=== PATIENT | male | born 1965 | race American Indian/Alaskan Native ===

== ENCOUNTER 2018-10-27 09:32 | Inpatient (IN) | payer BC, OTHER ==
[2018-10-27] MEDS ORDERED: VITAMIN B-1 100 MG, FOLVITE 1 MG, INFUVITE 10 ML in NACL 0.9% 1000 ML 1,000 ML IV ONE ×2 (10:33→21:00)
[2018-10-27 10:48] LABS: Basophils % (Auto) 0.9 % (0.0-1.8); Eosinophils % (Auto) 0.1 % (0.0-4.3); Hematocrit 35.2 % (35.5-45.6); Hemoglobin 12.3 gm/dl (11.8-15.2); Lymphocytes # (Auto) 0.4 K/mm3 (1.2-5.4); Lymphocytes % (Auto) 7.4 % (13.4-35.0); Mean Corpuscular HGB Conc 35 % (32-34); Mean Corpuscular Volume 96 fl (84-94); Monocytes # (Auto) 0.4 K/mm3 (0.0-0.8); Monocytes % (Auto) 8.6 % (0.0-7.3); Platelet Count 161 K/mm3 (140-440); Red Blood Count 3.67 M/mm3 (3.65-5.03)
[2018-10-27] MEDS: ATIVAN IV PRN ×6 (10:50→22:23)
--- NOTE | 2018-10-27 10:57 | Emergency Department Report ---
HPI - General Chief Complaint: Alcohol Time Seen by Provider: 10/27/18 10:00 - HPI HPI: 53-year-old male presents to the emergency department from [facility] with complaint of alcohol withdrawal symptoms uncontrolled by the detox / rehabilitation Center. The patient last had a drink on Tuesday, 5 days ago. Over the past few days he has been having some dizziness, recurrent falls, generalized weakness, tremors, nausea. The patient says that he has been getting B1 and B12 vitamins. He did not go to the emergency department for any medical clearance prior to the detox center. He denies any other past medical conditions. Apparently the patient was sent in because earlier today he had an episode where he had difficulty speaking and the facility thought he had difficulty moving his legs. The patient is awake and alert and says that he just had some weakness. ED Past Medical Hx - Past Medical History Previous Medical History?: No - Surgical History Past Surgical History?: No - Social History Smoking Status: Never Smoker Substance Use Type: Alcohol - Medications Home Medications: Home Medications Medication Instructions Recorded Confirmed Last Taken Type No Known Home Medications [No 10/27/18 10/27/18 Unknown History Reported Home Medications] ED Review of Systems ROS: Stated complaint: WITHDRAWALS Other details as noted in HPI Comment: All other systems reviewed and negative Constitutional: denies: chills, fever Eyes: denies: eye pain, vision change ENT: denies: ear pain, throat pain Respiratory: denies: cough, shortness of breath Cardiovascular: denies: chest pain, palpitations Gastrointestinal: nausea. denies: abdominal pain Genitourinary: denies: urgency, dysuria Musculoskeletal: denies: back pain, arthralgia Skin: denies: rash, lesions Neurological: weakness, other (tremors, dizziness) Physical Exam - Physical Exam Vital Signs: Vital Signs 10/27/18 10:15 Temperature 98.5 F Pulse Rate 105 H Respiratory 18 Rate Blood Pressure 110/62 O2 Sat by Pulse 100 Oximetry Physical Exam: GENERAL: Patient is ill-appearing. HENT: Normocephalic. Atraumatic. Patient has moist mucous membranes. EYES: Extraocular motions are intact. Pupils equal reactive to light bilaterally. NECK: Supple. Trachea is midline. CHEST/LUNGS: Clear to auscultation. There is no respiratory distress noted. HEART/CARDIOVASCULAR: Regular. There is mild tachycardia. There is no murmur. ABDOMEN: Abdomen is soft. There is mild upper abdominal tenderness to palpation. Patient has normal bowel sounds. There is no abdominal distention. SKIN: Skin is warm and dry. NEURO: The patient is awake and oriented but does display some intermittent confusion. He is slow to respond to questions but is mostly able to answer them appropriately. The patient has normal speech. MUSCULOSKELETAL: There is no tenderness or deformity. There is no evidence of acute injury. ED Course Vital Signs 10/27/18 10:15 Temperature 98.5 F Pulse Rate 105 H Respiratory 18 Rate Blood Pressure 110/62 O2 Sat by Pulse 100 Oximetry ED Medical Decision Making - Lab Data Result diagrams: 10/27/18 10:33 10/27/18 10:33 - EKG Data -: EKG Interpreted by De EKG shows normal: sinus rhythm, axis, intervals, QRS complexes (q waves to septal leads), ST-T waves Rate: tachycardia (104 bpm) - EKG Data When compared to previous EKG there are: previous EKG unavailable Interpretation: other (sinus tach at 104 bpm, q waves to the septal leads) - Radiology Data Radiology results: report reviewed CT HEAD WITHOUT CONTRAST: HISTORY: Syncope. TECHNIQUE: Sequential 2.5mm CT images. COMPARISON: 07/05/18. FINDINGS: Cerebral Parenchyma: Within normal limits. Cerebellum: Within normal limits. Brainstem: Within normal limits. Ventricles: Normal. Sella: Normal. Extra-axial spaces: Normal. Basal Cisterns: Normal. Intracranial Hemorrhage: None. Midline Shift: None. Calvarium: Normal. Sinuses: Normal. Mastoid Air Cells: Normal. Visualized Orbits: Normal. IMPRESSION: Cranial CT scan within normal limits. Transcribed By: TTR Dictated By: SHARDA SANCHEZ JR, MD Electronically Authenticated By: SHARDA SANCHEZ JR, MD Signed Date/Time: 10/27/18 1459 PROCEDURE: CT ABDOMEN PELVIS W CON TECHNIQUE: Computerized axial tomography of the abdomen and pelvis was performed after the IV injection of iodinated nonionic contrast. CT DOSE LENGTH PRODUCT: 3758.3 mGycm HISTORY: Pancreatitis COMPARISONS: None . FINDINGS: Visualized lower thorax: No significant abnormality. Liver: Normal size and attenuation. Spleen: Normal size and attenuation. Gallbladder and biliary system: Normal. Pancreas: There is peripancreatic inflammatory stranding pancreas enhances normally. Adrenals: Normal. Kidneys: Normal. GI tract: Normal . Lymph nodes and mesentery: Normal. Vasculature: Normal.. Bladder: Normal. Reproductive organs: Normal. Peritoneum: No free fluid. Musculoskeletal structures: No significant abnormality. Other: None . IMPRESSION: Findings most consistent with acute pancreatitis This document is electronically signed by Ean Welch MD., Oct 27 2018 06:03:49 PM ET Transcribed By: [facility] Dictated By: MILY WELCH MD Electronically Authenticated By: MILY WELCH MD Signed Date/Time: 10/27/18 7279 - Medical Decision Making This patient presents to the emergency department with what appears to be alcoho l withdrawal syndrome. Patient had some complaints of some generalized weakness and some episodes of falling and feeling off balance. A CT scan of the head was done that does not show any bleed, shift, mass, ischemia, or any other acute process. The patient's labs show significant hypokalemia and a very elevated lipase level. A CT scan of the abdomen and pelvis with IV contrast was completed that shows acute pancreatitis. The patient was given some IV magnesium sulfate to replenish the magnesium level. He was given some IV fluid resuscitation with banana bags. He was placed on the alcohol withdrawal protocol to receive Ativan as necessary. The patient will be admitted to the hospital for further evaluation and treatment, and was accepted for admission by the hospitalist, Dr. Corona. - Differential Diagnosis alcohol withdrawal, electrolyte abnormalities, dysrhythmia, pancreatitis Critical Care Time: No Critical care attestation.: If time is entered above; I have spent that time in minutes in the direct care of this critically ill patient, excluding procedure time. ED Disposition Clinical Impression: Hypomagnesemia Acute pancreatitis Qualifiers: Pancreatitis type: alcohol induced Acute pancreatitis complication: unspecified Qualified Code(s): K85.20 - Alcohol induced acute pancreatitis without necrosis or infection Alcohol withdrawal syndrome Qualifiers: Complication of substance-induced condition: with unspecified complication Qualified Code(s): F10.239 - Alcohol dependence with withdrawal, unspecified Disposition: -09 OP ADMIT IP TO THIS HOSP Is pt being admited?: Yes Condition: Serious Time of Disposition: 19:17
[2018-10-27 11:11] LABS: Alanine Aminotransferase 15 units/L (7-56); BUN/Creatinine Ratio 8; Blood Urea Nitrogen 7 mg/dL (9-20); Calcium 7.3 mg/dL (8.4-10.2); Hemolysis Index 36
[2018-10-27] MEDS ORDERED: K-DUR PO ONE (11:27)
[2018-10-27] MEDS ORDERED: MAGNESIUM SULFATE 2GM/50ML 2 GM/50 ML BAG IV ONE (11:27)
--- NOTE | 2018-10-27 11:53 | Cat Scan Report ---
CT HEAD WITHOUT CONTRAST: HISTORY: Alcohol intoxication. TECHNIQUE: Sequential 2.5mm CT images. COMPARISON: none. FINDINGS: Cerebral Parenchyma: Within normal limits. Cerebellum: Within normal limits. Brainstem: Within normal limits. Ventricles: Normal. Sella: Normal. Extra-axial spaces: Normal. Basal Cisterns: Normal. Intracranial Hemorrhage: None. Midline Shift: None. Calvarium: Normal. Sinuses: Normal. Mastoid Air Cells: Normal. Visualized Orbits: Normal. IMPRESSION: Cranial CT scan within normal limits.
--- NOTE | 2018-10-27 13:56 | History and Physical Report ---
History of Present Illness Chief complaint: confused History of present illness: 53 YO Male with ETOH Dependence presents to ED for evaluation. Pt is confused with confabulation and unable to provide history. Pt history taken from ED staff and [facility] staff. As per staff, the patient's last drink of ETOH was 5 days ago. Pt has experienced increased confusion, tremors, and unsteady gait resulting in multiple falls without injury over the past 2 days with worsening symptoms over the past 1 day. EMS was notified, and upon arrival the patient was found to be in distress. Pt transported to [facility]. Pt seen and evaluated in ED and found to have ETOH Withdrawl complicated by Delirium, and Encephalopathy, Acidosis, and ETOH pancreatitis. No further history obtainable. Pt admitted to Medical Floor, and initiated on CIWA protocol, as well as IVF resuscitation therapy. No prior admission for review. No medication listed for reconciliation at time of admission. Past History Past Medical History: other (ETOH Dependence) Past Surgical History: No surgical history, Other (reviewed) Social history: single, alcohol abuse. denies: smoking, prescription drug abuse, IV drug use Family history: hypertension Medications and Allergies Allergies Allergy/AdvReac Type Severity Reaction Status Date / Time No Known Allergies Allergy Unverified 10/27/18 10:34 Home Medications Medication Instructions Recorded Confirmed Last Taken Type No Known Home Medications [No 10/27/18 10/27/18 Unknown History Reported Home Medications] Active Meds: Active Medications Thiamine HCl 100 mg/ Folic Acid 1 mg/ Multivitamins/Minerals 10 ml/ Sodium Chloride 1,011.2 mls @ 250 mls/hr IV ONCE ONE Stop: 10/27/18 14:35 Last Admin: 10/27/18 11:21 Dose: 250 mls/hr Documented by: Sodium Chloride (Nacl 0.45%) 3,000 mls @ 999 mls/hr IV DIRECT SHANNAN Lorazepam (Ativan) 2 mg IV Q1HR PRN PRN Reason: CIWA-Ar 8-15 Last Admin: 10/27/18 11:45 Dose: 2 mg Documented by: Lorazepam (Ativan) 4 mg IV Q1HR PRN PRN Reason: CIWA-Ar 16-25 Lorazepam (Ativan) 4 mg IV Q15MIN PRN PRN Reason: CIWA-Ar >25 Review of Systems ROS unobtainable: due to mental status Exam - Constitutional Vitals: Temp Pulse Resp BP Pulse Ox 98.5 F 69 18 113/65 100 10/27/18 10:15 10/27/18 12:59 10/27/18 12:59 10/27/18 12:59 10/27/18 12:59 General appearance: Present: mild distress, disheveled - EENT Eyes: Present: PERRL ENT: hearing intact, clear oral mucosa - Neck Neck: Present: supple, normal ROM - Respiratory Respiratory effort: normal Respiratory: bilateral: CTA - Cardiovascular Heart Sounds: Present: S1 & S2. Absent: rub, click - Extremities Extremities: pulses symmetrical, No edema Peripheral Pulses: within normal limits - Abdominal General gastrointestinal: Present: soft, non-tender, non-distended, normal bowel sounds Male genitourinary: Present: normal - Integumentary Integumentary: Present: clear, dry, clammy, decreased turgor - Musculoskeletal Musculoskeletal: generalized weakness - Psychiatric Psychiatric: no appropriate mood/affect, no intact judgment & insight, no memory intact - Neurologic Neurologic: CNII-XII intact, no focal deficits, moves all extremities, no gait normal Results - Labs CBC & Chem 7: 10/27/18 10:33 10/27/18 10:33 Labs: Abnormal lab results 10/27/18 10/27/18 Range/Units 10:33 10:33 Hct 35.2 L (35.5-45.6) % MCV 96 H (84-94) fl MCH 34 H (28-32) pg MCHC 35 H (32-34) % Lymph % (Auto) 7.4 L (13.4-35.0) % [place] % (Auto) 8.6 H (0.0-7.3) % Lymph # 0.4 L (1.2-5.4) K/mm3 Seg Neutrophils % 83.0 H (40.0-70.0) % Potassium 3.5 L (3.6-5.0) mmol/L Carbon Dioxide 17 L (22-30) mmol/L BUN 7 L (9-20) mg/dL Glucose 175 H (75-100) mg/dL Calcium 7.3 L (8.4-10.2) mg/dL Magnesium 0.70 L* (1.7-2.3) mg/dL AST 56 H (5-40) units/L Total Protein 5.0 L (6.3-8.2) g/dL Albumin 3.0 L (3.9-5) g/dL Lipase 2791 H (13-60) units/L Assessment and Plan - Patient Problems (1) Acute pancreatitis Current Visit: Yes Status: Acute Qualifiers: Pancreatitis type: alcohol induced Acute pancreatitis complication: unspecified Qualified Code(s): K85.20 - Alcohol induced acute pancreatitis without necrosis or infection Plan to address problem: CT Abdomen/pelvis, serial abdominal exam, IVF resuscitation therapy, bowel rest, lipase level, repeat lipase in AM. No evidence of necrosis on CT abdomen and as a result, no antibiotics prescribed at this time. (2) Alcohol withdrawal syndrome Current Visit: Yes Status: Acute Qualifiers: Complication of substance-induced condition: with unspecified complication Qualified Code(s): F10.239 - Alcohol dependence with withdrawal, unspecified Plan to address problem: CIWA protocol, Thiamine, folic Acid, Multivitamin daily, ativan prn, IVF resuscitation therapy (3) Hypomagnesemia Current Visit: Yes Status: Acute Plan to address problem: repleted in ED. (4) Encephalopathy Current Visit: Yes Status: Acute Plan to address problem: CT Head, neuro checks, IVF resuscitation therapy, seizure precautions, fall precautions, neuro checks. (5) DVT prophylaxis Current Visit: Yes Status: Acute Plan to address problem: SCD to BLE while in bed, prophylactic lovenox
[2018-10-27] MEDS ORDERED: NACL 0.45% 3,000 ML IV SCH (14:00)
[2018-10-27 14:12] LABS: Bacteria,Urine 2+ /HPF (Negative); Bilirubin,Urine NEG (Negative); Blood,Urine SM (Negative); Color,Urine Amber (Yellow); Hyaline Casts,Urine 9 /LPF; Mucus,Urine 2+ /HPF
[2018-10-27 14:18] LABS: Amphetamine Screen,Urine PRESUMPTIVE NEGATIVE; Benzodiazepines Screen,Urine PRESUMPTIVE NEGATIVE; Cannabinoid Screen,Urine PRESUMPTIVE NEGATIVE; Cocaine Screen,Urine PRESUMPTIVE NEGATIVE; Methadone Screen,Urine PRESUMPTIVE NEGATIVE; Opiate Screen,Urine PRESUMPTIVE NEGATIVE
[2018-10-27] MEDS ORDERED: ZOFRAN IV PRN (16:05)
[2018-10-27] MEDS ORDERED: SODIUM CHLORIDE FLUSH SYRINGE 10 ML IV PRN (16:05)
[2018-10-27] MEDS ORDERED: PROVENTIL IH PRN (16:05)
--- NOTE | 2018-10-27 17:05 | Cat Scan Report ---
PROCEDURE: CT ABDOMEN PELVIS W CON TECHNIQUE: Computerized axial tomography of the abdomen and pelvis was performed after the IV inject ion of iodinated nonionic contrast. CT DOSE LENGTH PRODUCT: 3758.3 mGycm HISTORY: Pancreatitis COMPARISONS: None . FINDINGS: Visualized lower thorax: No significant abnormality. Liver: Normal size and attenuation. Spleen: Normal size and attenuation. Gallbladder and biliary system: Normal. Pancreas: There is peripancreatic inflammatory stranding pancreas enhances normally. Adrenals: Normal. Kidneys: Normal. GI tract: Normal . Lymph nodes and mesentery: Normal. Vasculature: Normal.. Bladder: Normal. Reproductive organs: Normal. Peritoneum: No free fluid. Musculoskeletal structures: No significant abnormality. Other: None . IMPRESSION: Findings most consistent with acute pancreatitis This document is electronically signed by Ean Estrada MD., Oct 27 2018 06:03:49 PM ET
[2018-10-27] MEDS ORDERED: ATIVAN ONE (18:32)
[2018-10-27] MEDS ORDERED: NACL 0.45% 1000 ML 1,000 ML IV ONE (18:33)
[2018-10-27] MEDS: NACL 0.45% 1000 ML 1,000 ML IV SCH (18:37)
[2018-10-27] MEDS ORDERED: ZOSYN/NS 4.5GM/100ML 4.5 GM/100 ML VIAL IV ONE (19:30)
[2018-10-27] MEDS: LOVENOX SUB-Q SCH (22:18)
[2018-10-27] MEDS: SODIUM CHLORIDE FLUSH SYRINGE 10 ML IV SCH (22:29)
[2018-10-28] MEDS: ATIVAN IV PRN ×6 (00:27→17:32)
[2018-10-28 07:27] LABS: Basophils % (Auto) 0.8 % (0.0-1.8); Eosinophils % (Auto) 0.1 % (0.0-4.3); Hematocrit 30.9 % (35.5-45.6); Lymphocytes # (Auto) 0.8 K/mm3 (1.2-5.4); Lymphocytes % (Auto) 14.7 % (13.4-35.0); Mean Corpuscular HGB Conc 36 % (32-34); Mean Corpuscular Volume 96 fl (84-94); Monocytes # (Auto) 0.8 K/mm3 (0.0-0.8); Monocytes % (Auto) 14.5 % (0.0-7.3); Platelet Count 133 K/mm3 (140-440); Red Blood Count 3.23 M/mm3 (3.65-5.03); Red Cell Distribution Width 14.1 % (13.2-15.2)
[2018-10-28 08:13] LABS: Alanine Aminotransferase 15 units/L (7-56); Albumin 3.4 g/dL (3.9-5); BUN/Creatinine Ratio 10; Blood Urea Nitrogen 9 mg/dL (9-20); Calcium 8.1 mg/dL (8.4-10.2); Hemolysis Index 4
[2018-10-28] MEDS: NACL 0.45% 1000 ML 1,000 ML IV SCH ×2 (09:14→19:04)
[2018-10-28] MEDS: VITAMIN B-1 PO SCH (09:15)
[2018-10-28] MEDS: THERAGRAN Tab PO SCH (09:15)
[2018-10-28] MEDS: FOLVITE PO SCH (09:15)
--- NOTE | 2018-10-28 11:34 | Progress Note ---
Assessment and Plan - Acute pancreatitis CT Abdomen/pelvis, serial abdominal exam, IVF resuscitation therapy, bowel rest, lipase level, repeat lipase in AM. No evidence of necrosis on CT abdomen and as a result, no antibiotics prescribed at this time. - DT Transfer to the unit Continue on stroke protocol May commence patient on Ativan drip - Alcohol withdrawal syndrome CIWA protocol, Thiamine, folic Acid, Multivitamin daily, ativan prn, increase IVF resuscitation therapy - Hypomagnesemia Supplement further - Encephalopathy CT Head, neuro checks, IVF resuscitation therapy, seizure precautions, fall precautions, neuro checks. - DVT prophylaxis Current Visit: Yes Status: Acute Plan to address problem: SCD to BLE while in bed, prophylactic lovenox Subjective Date of service: 10/28/18 Principal diagnosis: DT, alcohol withdrawal Interval history: Patient's seen and examined. Denies any fever or chest pain. Discussed with the patient is nauseous. Abdomen was needed tachycardia. Objective - Exam Narrative Exam: Constitutional: Drowsy Head: Normocephalic atraumatic Eyes: Pupils are equal round and reactive to light Nose: No enlarged turbinates, no septal deviation. Mouth: Moist mucous membranes. Neck: Supple no thyromegaly. No bruit. No JVD Heart: Tachycardic S1-S2 normal. No rubs murmurs or gallop Lungs: Clear to auscultation bilaterally. no rales or rhonchi Abdomen: Soft, nontender. Bowel sound are present. Extremities: No edema, no cyanosis, no clubbing. Neuro: Drowsy Skin: No rashes or hyperpigmented spots Musculoskeletal system: No joint pain or swelling Hematological: No petechia or subcutanous hemorrhages. Immunological: No multiple septic spots on the skin Lymphatic: No generalized lymphadenopathy Psychiatry: Drowsy - Constitutional Vitals: Vital Signs - 12hr 10/27/18 10/27/18 10/28/18 23:56 23:58 06:12 Temperature 97.8 F Pulse Rate 107 H 101 H Respiratory 18 18 Rate Blood Pressure 145/96 126/82 O2 Sat by Pulse 99 100 Oximetry 10/28/18 06:14 Temperature 97.5 F L Pulse Rate Respiratory Rate Blood Pressure O2 Sat by Pulse Oximetry - Labs CBC & Chem 7: 10/28/18 06:39 10/28/18 06:39 Labs: Abnormal lab results 10/27/18 10/27/1819 Range/Units 10:33 13:55 06:39 RBC 3.23 L (3.65-5.03) M/mm3 Hgb 11.0 L (11.8-15.2) gm/dl Hct 30.9 L (35.5-45.6) % MCV 96 H (84-94) fl MCH 34 H (28-32) pg MCHC 36 H (32-34) % Plt Count 133 L (140-440) K/mm3 [place] % (Auto) 14.5 H (0.0-7.3) % Lymph # 0.8 L (1.2-5.4) K/mm3 Potassium (3.6-5.0) mmol/L Calcium (8.4-10.2) mg/dL AST (5-40) units/L Total Protein (6.3-8.2) g/dL Albumin (3.9-5) g/dL Lipase 2791 H (13-60) units/L Urine WBC (Auto) 8.0 H (0.0-6.0) /HPF 10/28/18 10/28/18 Range/Units 06:39 06:39 RBC (3.65-5.03) M/mm3 Hgb (11.8-15.2) gm/dl Hct (35.5-45.6) % MCV (84-94) fl MCH (28-32) pg MCHC (32-34) % Plt Count (140-440) K/mm3 [place] % (Auto) (0.0-7.3) % Lymph # (1.2-5.4) K/mm3 Potassium 3.4 L (3.6-5.0) mmol/L Calcium 8.1 L (8.4-10.2) mg/dL AST 63 H (5-40) units/L Total Protein 6.2 L D (6.3-8.2) g/dL Albumin 3.4 L (3.9-5) g/dL Lipase 2425 H (13-60) units/L Urine WBC (Auto) (0.0-6.0) /HPF
[2018-10-28 13:02] LABS: Bilirubin,Urine NEG (Negative); Blood,Urine SM (Negative); Color,Urine Yellow (Yellow); Urobilinogen,Urine < 2.0 mg/dL (<2.0)
[2018-10-28 13:11] LABS: Amphetamine Screen,Urine PRESUMPTIVE NEGATIVE; Benzodiazepines Screen,Urine PRESUMPTIVE NEGATIVE; Cannabinoid Screen,Urine PRESUMPTIVE NEGATIVE; Cocaine Screen,Urine PRESUMPTIVE NEGATIVE; Methadone Screen,Urine PRESUMPTIVE NEGATIVE; Opiate Screen,Urine PRESUMPTIVE NEGATIVE
[2018-10-28] MEDS: SODIUM CHLORIDE FLUSH SYRINGE 10 ML IV SCH ×2 (14:34→21:05)
[2018-10-28] MEDS ORDERED: HALDOL IV PRN (15:53)
[2018-10-28] MEDS ORDERED: MAGNESIUM SULFATE 4GM/100ML 4 GM/100 ML BAG IV ONE (16:00)
--- NOTE | 2018-10-28 16:42 | XRay Report ---
PROCEDURE: XR ABDOMEN 1V AP TECHNIQUE: Abdominal radiograph, single view. HISTORY: Confirm Feeding tube COMPARISONS: AP CT 10/27/2018 . FINDINGS: Distal tip and side-port gastric tube is present in the left upper quadrant of the abdomen, in the ex pected region of the proximal stomach. The nonspecific intestinal gas is without evidence of distention or obstructive pattern. The colonic fecal content does not appear increased. There is no visceromegaly or mass. Pelvis is not included limiting the examination. No radiographic evidence of definite urinary tract calcification. IMPRESSION: Nonspecific bowel gas pattern without intestinal distention Gastric tube distal tip and side-port in proximal stomach region This document is electronically signed by Lucas Cochran MD., October 28 2018 05:40:06 PM ET
[2018-10-28] MEDS: LIBRIUM PO SCH (16:59)
[2018-10-28] MEDS: KCL 10MEQ/100ML 10 MEQ/100 ML BAG IV SCH ×4 (17:50→23:17)
[2018-10-28] MEDS: LOVENOX SUB-Q SCH (21:05)
[2018-10-29] MEDS: LIBRIUM PO SCH ×4 (00:39→23:50)
[2018-10-29] MEDS: NACL 0.45% 1000 ML 1,000 ML IV SCH ×3 (01:13→17:09)
[2018-10-29 05:32] LABS: Hematocrit 30.7 % (35.5-45.6); Hemoglobin 10.7 gm/dl (11.8-15.2); Mean Corpuscular HGB Conc 35 % (32-34); Mean Corpuscular Volume 98 fl (84-94); Platelet Count 137 K/mm3 (140-440); Red Blood Count 3.14 M/mm3 (3.65-5.03)
[2018-10-29 06:04] LABS: Alanine Aminotransferase 13 units/L (7-56); Albumin 2.7 g/dL (3.9-5); BUN/Creatinine Ratio 16; Blood Urea Nitrogen 8 mg/dL (9-20); Calcium 7.8 mg/dL (8.4-10.2); Hemolysis Index 26
[2018-10-29] MEDS: ATIVAN IV PRN ×5 (06:36→21:38)
[2018-10-29 07:54] LABS: Band Neutrophils # (Manual) 0.6 K/mm3; Basophils % (Manual) 0 % (0.0-1.8); Total Cells Counted 100
[2018-10-29 07:55] LABS: Anisocytosis 1+; Platelet Estimate Consistent w Auto
[2018-10-29] MEDS: POTASSIUM CHLORIDE FEEDTUBE SCH (10:33)
[2018-10-29] MEDS: THERAGRAN Tab PO SCH (10:33)
[2018-10-29] MEDS: VITAMIN B-1 PO SCH (10:33)
[2018-10-29] MEDS: FOLVITE PO SCH (10:33)
--- NOTE | 2018-10-29 11:23 | Progress Note ---
Assessment and Plan - Alcohol withdrawal syndrome with tachycardia dn diapjoresis for whci he was transdferd to the unit 10/28/18 CIWA protocol, Thiamine, folic Acid, Multivitamin daily, ativan prn, increase IVF resuscitation therapy - Encephalopathy CT Head, neuro checks, IVF resuscitation therapy, seizure precautions, fall precautions, neuro checks. - DT With tachycardia Continue on stroke protocol May commence patient on Ativan drip - Acute pancreatitis CT Abdomen/pelvis, serial abdominal exam, IVF resuscitation therapy, bowel rest, repeat lipase in AM. No evidence of necrosis on CT abdomen and as a result, Will commence pt on imperical antibiotic - Hypomagnesemia - am Mg level pending Supplement further if still low - DVT prophylaxis Current Visit: Yes Status: Acute Plan to address problem: SCD to BLE while in bed, prophylactic lovenox Subjective Date of service: 10/29/18 Principal diagnosis: DT, alcohol withdrawal Interval history: Patient's seen and examined. Denies any fever or chest pain. Discussed with the patient and his nurse. No overnoght event reported to me. Objective - Exam Narrative Exam: Constitutional: More alert but still confused Head: Normocephalic atraumatic Eyes: Pupils are equal round and reactive to light Nose: No enlarged turbinates, no septal deviation. Mouth: Moist mucous membranes. Neck: Supple no thyromegaly. No bruit. No JVD Heart: Tachycardic S1-S2 normal. No rubs murmurs or gallop Lungs: Clear to auscultation bilaterally. no rales or rhonchi Abdomen: Soft, nontender. Bowel sound are present. Extremities: No edema, no cyanosis, no clubbing. Neuro: Confused Skin: No rashes or hyperpigmented spots Musculoskeletal system: No joint pain or swelling Hematological: No petechia or subcutanous hemorrhages. Immunological: No multiple septic spots on the skin Lymphatic: No generalized lymphadenopathy Psychiatry: Confused - Constitutional Vitals: Vital Signs - 12hr 10/28/18 10/28/18 10/28/18 23:25 23:30 23:38 Temperature Pulse Rate 107 H 104 H Respiratory 11 L 11 L Rate Blood Pressure 120/78 109/76 O2 Sat by Pulse 100 100 100 Oximetry 10/28/18 10/29/18 10/29/18 23:51 00:00 00:30 Temperature 99.6 F Pulse Rate 101 H 111 H Respiratory 12 14 Rate Blood Pressure 112/79 112/87 O2 Sat by Pulse 100 100 Oximetry 10/29/18 10/29/18 10/29/18 01:00 01:30 02:00 Temperature Pulse Rate 112 H 101 H 102 H Respiratory 16 15 12 Rate Blood Pressure 112/87 105/78 97/73 O2 Sat by Pulse 98 100 100 Oximetry 10/29/18 10/29/18 10/29/18 02:30 02:53 03:00 Temperature Pulse Rate 104 H 99 H 97 H Respiratory 10 L 11 L 11 L Rate Blood Pressure 94/59 94/59 O2 Sat by Pulse 100 100 100 Oximetry 10/29/18 10/29/18 10/29/18 03:30 03:41 04:00 Temperature 99.1 F Pulse Rate 98 H 98 H Respiratory 11 L 12 Rate Blood Pressure 110/84 107/74 O2 Sat by Pulse 100 100 Oximetry 10/29/18 10/29/18 10/29/18 04:30 05:00 05:30 Temperature Pulse Rate 97 H 99 H 96 H Respiratory 12 14 16 Rate Blood Pressure 100/65 98/74 84/57 O2 Sat by Pulse 100 100 100 Oximetry 10/29/18 10/29/18 10/29/18 06:01 06:30 07:01 Temperature Pulse Rate 113 H 120 H 99 H Respiratory 19 19 17 Rate Blood Pressure 113/79 113/79 133/82 O2 Sat by Pulse 98 99 100 Oximetry 10/29/18 10/29/18 10/29/18 07:30 08:00 08:30 Temperature 98.8 F Pulse Rate 98 H 97 H 105 H Respiratory 16 17 17 Rate Blood Pressure 140/85 137/75 120/86 O2 Sat by Pulse 100 100 100 Oximetry 10/29/18 10/29/18 10/29/18 09:00 09:30 10:00 Temperature Pulse Rate 111 H 107 H 111 H Respiratory 17 20 17 Rate Blood Pressure 105/84 123/84 117/84 O2 Sat by Pulse 100 100 100 Oximetry 10/29/18 10/29/18 10:30 11:00 Temperature Pulse Rate 107 H 96 H Respiratory 14 13 Rate Blood Pressure 117/77 112/81 O2 Sat by Pulse 100 100 Oximetry - Labs CBC & Chem 7: 10/29/18 04:49 10/29/18 04:49 Labs: Abnormal lab results 10/28/18 10/29/18 10/29/18 Range/Units 20:45 04:49 04:49 RBC 3.14 L (3.65-5.03) M/mm3 Hgb 10.7 L (11.8-15.2) gm/dl Hct 30.7 L (35.5-45.6) % MCV 98 H (84-94) fl MCH 34 H (28-32) pg MCHC 35 H (32-34) % Plt Count 137 L (140-440) K/mm3 Monocytes % (Manual) 10.0 H (0.0-7.3) % Lymphocytes # (Manual) 0.8 L (1.2-5.4) K/mm3 POC ABG pH 7.511 H (7.35-7.45) Potassium 3.4 L (3.6-5.0) mmol/L Carbon Dioxide 18 L (22-30) mmol/L BUN 8 L (9-20) mg/dL Creatinine 0.5 L (0.8-1.5) mg/dL Glucose 101 H (75-100) mg/dL Calcium 7.8 L (8.4-10.2) mg/dL Magnesium (1.7-2.3) mg/dL AST 47 H (5-40) units/L Total Protein 5.7 L (6.3-8.2) g/dL Albumin 2.7 L (3.9-5) g/dL 10/29/18 Range/Units 09:48 RBC (3.65-5.03) M/mm3 Hgb (11.8-15.2) gm/dl Hct (35.5-45.6) % MCV (84-94) fl MCH (28-32) pg MCHC (32-34) % Plt Count (140-440) K/mm3 Monocytes % (Manual) (0.0-7.3) % Lymphocytes # (Manual) (1.2-5.4) K/mm3 POC ABG pH (7.35-7.45) Potassium (3.6-5.0) mmol/L Carbon Dioxide (22-30) mmol/L BUN (9-20) mg/dL Creatinine (0.8-1.5) mg/dL Glucose (75-100) mg/dL Calcium (8.4-10.2) mg/dL Magnesium 1.40 L (1.7-2.3) mg/dL AST (5-40) units/L Total Protein (6.3-8.2) g/dL Albumin (3.9-5) g/dL
[2018-10-29] MEDS: SODIUM CHLORIDE FLUSH SYRINGE 10 ML IV SCH ×2 (13:37→21:44)
--- NOTE | 2018-10-29 15:23 | Consultation ---
History of Present Illness Consult date: 10/29/18 Requesting physician: AGAPITO VALDES Reason for consult: other (Delirium Tremens) History of present illness: PULMONARY/CCM CONSULT NOTE (Full dictation # [id number]) Please see dictated notes for full details Past History Past Medical History: other (ETOH Dependence) Past Surgical History: No surgical history, Other (reviewed) Social history: single, alcohol abuse. denies: smoking, prescription drug ab use, IV drug use Family history: hypertension Medications and Allergies Allergies Allergy/AdvReac Type Severity Reaction Status Date / Time No Known Allergies Allergy Unverified 10/27/18 10:34 Home Medications Medication Instructions Recorded Confirmed Last Taken Type No Known Home Medications [No 10/27/18 10/27/18 Unknown History Reported Home Medications] Active Meds: Active Medications Acetaminophen (Tylenol) 650 mg PO Q4H PRN PRN Reason: Pain MILD(1-3)/Fever >100.5/LUNA Albuterol (Proventil) 2.5 mg IH Q4HRT PRN PRN Reason: Shortness Of Breath Chlordiazepoxide HCl (Librium) 50 mg PO Q8H [facility] Stop: 10/30/18 15:59 Last Admin: 10/29/18 10:33 Dose: 50 mg Documented by: Enoxaparin Sodium (Lovenox) 40 mg SUB-Q QDAY@2200 [facility] Last Admin: 10/28/18 21:05 Dose: 40 mg Documented by: Folic Acid (Folvite) 1 mg PO QDAY [facility] Last Admin: 10/29/18 10:33 Dose: 1 mg Documented by: Haloperidol Lactate (Haldol) 5 mg IV Q6H PRN PRN Reason: Agitation Stop: 10/30/18 15:52 Sodium Chloride (Nacl 0.45% 1000 Ml) 1,000 mls @ 150 mls/hr IV DIRECT SHANNAN Last Admin: 10/29/18 08:31 Dose: 150 mls/hr Documented by: Lorazepam (Ativan) 2 mg IV Q1HR PRN PRN Reason: ROLANDO-Gagandeep 8-15 Last Admin: 10/29/18 06:36 Dose: 2 mg Documented by: Lorazepam (Ativan) 4 mg IV Q1HR PRN PRN Reason: ROLANDO-Gagandeep 16-25 Last Admin: 10/29/18 13:38 Dose: 4 mg Documented by: Lorazepam (Ativan) 4 mg IV Q15MIN PRN PRN Reason: CIWA-Ar >25 Last Admin: 10/28/18 17:32 Dose: 4 mg Documented by: Multivitamins (Theragran Tab) 1 each PO QDAY [facility] Last Admin: 10/29/18 10:33 Dose: 1 each Documented by: Ondansetron HCl (Zofran) 4 mg IV Q8H PRN PRN Reason: Nausea And Vomiting Potassium Chloride (Potassium Chloride) 20 meq FEEDTUBE QDAY [facility] Last Admin: 10/29/18 10:33 Dose: 20 meq Documented by: Quetiapine Fumarate (Seroquel) 200 mg PO BID [facility] Last Admin: 10/29/18 10:33 Dose: 200 mg Documented by: Sodium Chloride (Sodium Chloride Flush Syringe 10 Ml) 10 ml IV BID [facility] Last Admin: 10/29/18 13:37 Dose: 10 ml Documented by: Sodium Chloride (Sodium Chloride Flush Syringe 10 Ml) 10 ml IV PRN PRN PRN Reason: LINE FLUSH Thiamine HCl (Vitamin B-1) 100 mg PO QDAY [facility] Last Admin: 10/29/18 10:33 Dose: 100 mg Documented by: Physical Examination Vital signs: Vital Signs Temp Pulse Resp BP Pulse Ox 98.5 F 105 H 18 110/62 100 10/27/18 10:15 10/27/18 10:15 10/27/18 10:15 10/27/18 10:15 10/27/18 10:15 Results - Laboratory Findings CBC and BMP: 10/29/18 04:49 10/29/18 04:49 ABG POC ABG pH 7.511 (7.35-7.45) H 10/28/18 20:45 POC ABG pO2 98 (80-105) 10/28/18 20:45 POC ABG HCO3 20.2 (22-26 mml/L) 10/28/18 20:45 POC ABG Total CO2 21 (23-27mmol/L) 10/28/18 20:45 POC ABG O2 Sat 98 10/28/18 20:45 Abnormal lab findings: Abnormal Labs 10/27/18 10/27/18 10/27/18 10:33 10:33 13:55 RBC Hgb Hct 35.2 L MCV 96 H MCH 34 H MCHC 35 H Plt Count Lymph % (Auto) 7.4 L Holmes % (Auto) 8.6 H Lymph # 0.4 L Seg Neutrophils % 83.0 H Monocytes % (Manual) Lymphocytes # (Manual) POC ABG pH Potassium 3.5 L Carbon Dioxide 17 L BUN 7 L Creatinine Glucose 175 H Calcium 7.3 L Magnesium 0.70 L* AST 56 H Total Protein 5.0 L Albumin 3.0 L Lipase 2791 H Urine WBC (Auto) 8.0 H 10/28/18 10/28/18 10/28/18 06:39 06:39 06:39 RBC 3.23 L Hgb 11.0 L Hct 30.9 L MCV 96 H MCH 34 H MCHC 36 H Plt Count 133 L Lymph % (Auto) Holmes % (Auto) 14.5 H Lymph # 0.8 L Seg Neutrophils % Monocytes % (Manual) Lymphocytes # (Manual) POC ABG pH Potassium 3.4 L Carbon Dioxide BUN Creatinine Glucose Calcium 8.1 L Magnesium AST 63 H Total Protein 6.2 L D Albumin 3.4 L Lipase 2425 H Urine WBC (Auto) 10/28/18 10/29/18 10/29/18 20:45 04:49 04:49 RBC 3.14 L Hgb 10.7 L Hct 30.7 L MCV 98 H MCH 34 H MCHC 35 H Plt Count 137 L Lymph % (Auto) Holmes % (Auto) Lymph # Seg Neutrophils % Monocytes % (Manual) 10.0 H Lymphocytes # (Manual) 0.8 L POC ABG pH 7.511 H Potassium 3.4 L Carbon Dioxide 18 L BUN 8 L Creatinine 0.5 L Glucose 101 H Calcium 7.8 L Magnesium AST 47 H Total Protein 5.7 L Albumin 2.7 L Lipase Urine WBC (Auto) 10/29/18 10/29/18 09:48 09:48 RBC Hgb Hct MCV MCH MCHC Plt Count Lymph % (Auto) Holmes % (Auto) Lymph # Seg Neutrophils % Monocytes % (Manual) Lymphocytes # (Manual) POC ABG pH Potassium Carbon Dioxide BUN Creatinine Glucose Calcium Magnesium 1.40 L AST Total Protein Albumin Lipase 1628 H Urine WBC (Auto)
[2018-10-29] MEDS ORDERED: MAGNESIUM SULFATE 4GM/100ML 4 GM/100 ML BAG IV ONE (16:33)
[2018-10-29] MEDS ORDERED: KPHOS 30 MMOL in NACL 0.9% 500 ML 500 ML IV ONE (16:35)
[2018-10-29] MEDS: LOVENOX SUB-Q SCH (21:32)
[2018-10-29] MEDS: TYLENOL PO PRN (23:50)
[2018-10-30] MEDS: NACL 0.45% 1000 ML 1,000 ML IV SCH ×2 (03:36→10:35)
--- NOTE | 2018-10-30 05:19 | Consultation ---
PULMONARY CRITICAL CARE CONSULT CONSULTING PHYSICIAN: Crissy Moya MD REASON FOR CONSULTATION: Alcohol withdrawal with severe agitation and need for closer observation and deeper sedation. CHIEF COMPLAINT AND HISTORY OF PRESENT ILLNESS: As follows: The patient is a 53-year-old male with past medical history significant amongst other things for a diagnosis of alcohol dependence, came into the ER, confused, confabulating, essentially in delirium tremens as per the staff of [facility]. His last drink of alcohol was 5 days prior to presentation. He had had multiple falls from unsteady gait. In the ER, he was stabilized and admitted to the telemetry floor on CIWA protocol for alcohol withdrawal. While on the medical telemetry floor, his CIWA scores increased significantly and he was brought down to the Intensive Care Unit with the initial idea being he might need deeper sedation and intubation. When I stopped by to see him; however, he was actually very calm in bed. At that time, he had just received a 4 mg IV dose of Ativan. He was incoherent and unable to give me more of a history. I do not have any history of vomiting or overt aspiration. The patient has really not been febrile since he has been here. The above is as much of the history of presentation as I have. PAST MEDICAL HISTORY: Alcohol abuse. PAST SURGICAL HISTORY: Unknown. MEDICATIONS: He was on at the time I stopped by to see him was reviewed. Pertinent medications included the following: He had been on albuterol nebulizer treatments 2.5 mg nebulized q. 4 hours p.r.n. shortness of breath, folic acid 1 mg p.o. daily, Ativan per CIWA protocol, daily multivitamin, Zofran 4 mg IV q. 8 hours p.r.n., thiamine 100 mg p.o. daily. ALLERGIES: No known drug allergies. DIET: Obese gentleman, acute weight loss or gain history is unknown. FAMILY AND SOCIAL HISTORY: According to the records, the patient lives in the community. He has a history of alcohol abuse. The records indicate that he had denied tobacco or IV drug use in the ER. REVIEW OF SYSTEMS: Unobtainable secondary to the patient's medical and mental condition. Since he has been in the hospital, no gross hematochezia or melena, no gross hematuria, no hematemesis, no emesis, no hemoptysis, no witnessed seizures. Review of systems otherwise unobtainable. PHYSICAL EXAMINATION: VITAL SIGNS: At initial presentation, he was afebrile, temperature 98.5 degrees Fahrenheit with a pulse of 105, respiratory rate of 18 and blood pressure of 110/62, O2 sats were 100%, inspired oxygen concentration at that time was not recorded. When I stopped by to see him, his O2 sats were 98%; however, that was on 2 liters nasal cannula. GENERAL: Middle-aged obese male. Normocephalic, atraumatic, resting in bed, sedated and calm at the time of my evaluation without significant respiratory distress or depression. HEAD, EYES, EARS, NOSE AND THROAT: He is anicteric. No conjunctival erythema. Oropharynx is moist, appears to be a Mallampati #3 to Mallampati #4 oropharynx. He has a large neck circumference. No gross jugular venous distention, no thyromegaly. LUNGS: Auscultation of both lung tovar unremarkable. Lungs were clear bilaterally. HEART: Heart sounds 1 and 2 are heard. They were regular in rate and rhythm at the time of my evaluation without any rubs or murmurs. ABDOMEN: Soft, full, bowel sounds are positive, nontender. No palpable hepatosplenomegaly. EXTREMITIES: Without overt digital clubbing, no cyanosis and no pedal edema. Pedal pulses are strong bilaterally. NEUROLOGIC: Pupils are equal, round, about 3 mm, sluggishly reactive to light. Extraocular muscles and movements could not be adequately assessed. He had spontaneous movements to all extremities. He was sedated. His affect was flat. Again from a psychiatric standpoint, his affect was flat; however, he had been delirious most of the day. SKIN: The skin is of normal turgor without overt cellulitis or rash. LABORATORY DATA: From my review were as follows: Admission white cell count 5200, hemoglobin 12.3, hematocrit 35.2, platelet count 161. No manual differential. Serum sodium was 143, potassium 3.5, chloride 106, bicarbonate 17, BUN 7, creatinine 0.9. Glucose was 175. Magnesium was low at 0.7. AST was up at 56. Albumin low at 3.0; otherwise, liver function tests essentially within normal limits. Urinalysis was negative for nitrites and leukocyte esterase. He did have 8 white cells per high power field. Urine drug screen was presumptive negative. Alcohol level was non-detectable. RADIOGRAPHIC STUDIES: CT scan of the abdomen and pelvis as well as CT scan of the head was done at presentation. The CT scan suggested acute pancreatitis of the abdomen and pelvis. The CT of the head was read as being within normal limits. I should mention his lipase level was 2791 at presentation. ASSESSMENT AND PLAN: 1. Acute pancreatitis. 2. Alcohol withdrawal with delirium tremens. 3. Hypomagnesemia. 4. Acute toxic metabolic encephalopathy. 5. Obesity. 6. Hypokalemia. 7. Elevated serum transaminase. PLAN: We will keep him n.p.o. for now except for meds. I will have an NG tube placed and will begin Seroquel to better control his delirium and to spare benzodiazepines, which will depress his respiratory function even more. I will get arterial blood gas just to see where we are in terms of any significant hypercapnia. Oxygen will be weaned to keep sats greater than or equal to about 90%. Aspiration precautions will be maintained. Electrolytes are being aggressively replaced. He is going to be placed on GI and DVT prophylaxis. We will continue folate and thiamine replacement. Flu and pneumonia vaccination will be addressed per protocol. Hopefully, he tolerates the interventions, does not decompensate in particular from a pancreatitis standpoint, and we will continue to trend his serum lipase. GI evaluation will be at the behest of the attending physician. Thank you very much for the consult, Dr. Moya. We will follow along and make further recommendations as picture progresses/becomes clearer. JOB# [id number] CROW/ARGENTINA SIMENTAL
[2018-10-30 06:47] LABS: Hematocrit 29.4 % (35.5-45.6); Hemoglobin 10.4 gm/dl (11.8-15.2); Mean Corpuscular HGB Conc 35 % (32-34); Mean Corpuscular Volume 96 fl (84-94); Platelet Count 160 K/mm3 (140-440); Red Blood Count 3.07 M/mm3 (3.65-5.03); Red Cell Distribution Width 13.7 % (13.2-15.2)
[2018-10-30 06:59] LABS: Alanine Aminotransferase 13 units/L (7-56); Albumin 2.9 g/dL (3.9-5); BUN/Creatinine Ratio 14; Blood Urea Nitrogen 7 mg/dL (9-20); Calcium 7.7 mg/dL (8.4-10.2); Hemolysis Index 5
[2018-10-30 09:12] LABS: Basophils % (Manual) 0 % (0.0-1.8); Total Cells Counted 100
[2018-10-30 09:19] LABS: Anisocytosis 1+; Platelet Estimate Consistent w Auto
[2018-10-30] MEDS: POTASSIUM CHLORIDE FEEDTUBE SCH (09:44)
[2018-10-30] MEDS: FOLVITE PO SCH (09:44)
[2018-10-30] MEDS: THERAGRAN Tab PO SCH (09:44)
[2018-10-30] MEDS: VITAMIN B-1 PO SCH (09:44)
[2018-10-30] MEDS: LIBRIUM PO SCH (09:44)
[2018-10-30] MEDS: SODIUM CHLORIDE FLUSH SYRINGE 10 ML IV SCH ×2 (09:45→21:16)
--- NOTE | 2018-10-30 12:51 | Progress Note ---
Assessment and Plan Acute pancreatitis. Alcohol withdrawal with delirium tremens. Hypomagnesemia. Acute toxic metabolic encephalopathy. Obesity. Hypokalemia. Elevated serum transaminase. - get CXR re: hypoxemia and crackles - continue CIWA protocol - transaminases improved - keeping NPO for now - lipase trending down - prn analgesia - continue electrolyte replacement - continue supplemental oxygen to keep sats > 90% - continue GI & VTE prophylaxis - PT/OT as tolerated - mobility protocol for pressure ulcer prophylacis - flu & pneumovax per protocol ... transfer to PCU ... re-evaluate in am & prn Subjective Date of service: 10/30/18 Principal diagnosis: Acute pancreatitis; DT's; Hypomagnesemia; Acute encephalopathy (toxic/met) Interval history: Patient is seen today for: Acute pancreatitis; Alcohol withdrawal with delirium tremens; Hypomagnesemia; Acute toxic metabolic encephalopathy; Obesity; Elevated serum transaminase. Seen and examined at bedside; 24hour events reviewed; nursing and respiratory care staff consulted; no adverse overnight events reported to me; cindy on CIWA protocol; AMS is persistent; remains on supplemental oxygen therapy; No N/V/F/C Objective Vital Signs - 12hr 10/30/18 10/30/18 10/30/18 01:00 01:30 02:00 Temperature Pulse Rate 101 H 95 H 94 H Pulse Rate [ From Monitor] Respiratory 13 11 L 13 Rate Blood Pressure 98/57 90/55 83/53 O2 Sat by Pulse 99 99 99 Oximetry 10/30/18 10/30/18 10/30/18 02:30 02:40 03:00 Temperature Pulse Rate 90 99 H 96 H Pulse Rate [ From Monitor] Respiratory 13 18 10 L Rate Blood Pressure 88/57 103/76 O2 Sat by Pulse 99 100 100 Oximetry 10/30/18 10/30/18 10/30/18 03:30 04:00 04:30 Temperature 98.0 F Pulse Rate 85 85 83 Pulse Rate [ 82 From Monitor] Respiratory 11 L 11 L 11 L Rate Blood Pressure 92/64 91/63 100/57 O2 Sat by Pulse 100 100 100 Oximetry 10/30/18 10/30/18 10/30/18 05:01 05:30 06:00 Temperature Pulse Rate 88 94 H 93 H Pulse Rate [ From Monitor] Respiratory 10 L 12 11 L Rate Blood Pressure 91/63 110/79 116/79 O2 Sat by Pulse 100 100 100 Oximetry 10/30/18 10/30/18 10/30/18 06:30 07:00 07:30 Temperature Pulse Rate 86 91 H 90 Pulse Rate [ From Monitor] Respiratory 11 L 12 12 Rate Blood Pressure 124/80 135/89 133/86 O2 Sat by Pulse 100 98 100 Oximetry 10/30/18 10/30/18 08:00 08:30 Temperature 97.3 F L Pulse Rate 90 92 H Pulse Rate [ 88 From Monitor] Respiratory 12 11 L Rate Blood Pressure 123/90 123/90 O2 Sat by Pulse 100 100 Oximetry Constitutional: appears uncomfortable, other (middle aged obese male, normocephalic and atraumatic) Eyes: non-icteric ENT: oropharynx moist Neck: supple, no lymphadenopathy, no JVD, other (large neck circumference) Effort: mildly labored Ascultation: Bilateral: diminished breath sounds, rhonchi Percussion: Bilateral: not dull Cardiovascular: regular rate and rhythm, other (No R/M) Gastrointestinal: normoactive bowel sounds, soft, tender (mild in epigastrium) Integumentary: normal Extremities: no cyanosis, no edema, pulses normal, no ischemia or petechiae Neurologic: non-focal exam (grossly), unable to assess Psychiatric: other (sedated) CBC and BMP: 10/31/18 05:58 10/31/18 05:58 ABG, PT/INR, D-dimer: ABG POC ABG pH 7.511 (7.35-7.45) H 10/28/18 20:45 POC ABG pO2 98 (80-105) 10/28/18 20:45 POC ABG HCO3 20.2 (22-26 mml/L) 10/28/18 20:45 POC ABG Total CO2 21 (23-27mmol/L) 10/28/18 20:45 POC ABG O2 Sat 98 10/28/18 20:45 Abnormal lab findings: Abnormal Labs 10/27/18 10/27/18 10/27/18 10:33 10:33 13:55 RBC Hgb Hct 35.2 L MCV 96 H MCH 34 H MCHC 35 H Plt Count Lymph % (Auto) 7.4 L Wood % (Auto) 8.6 H Lymph # 0.4 L Seg Neutrophils % 83.0 H Seg Neuts % (Manual) Monocytes % (Manual) Lymphocytes # (Manual) POC ABG pH Potassium 3.5 L Carbon Dioxide 17 L BUN 7 L Creatinine Glucose 175 H Calcium 7.3 L Magnesium 0.70 L* AST 56 H Total Protein 5.0 L Albumin 3.0 L Lipase 2791 H Urine WBC (Auto) 8.0 H 10/28/18 10/28/18 10/28/18 06:39 06:39 06:39 RBC 3.23 L Hgb 11.0 L Hct 30.9 L MCV 96 H MCH 34 H MCHC 36 H Plt Count 133 L Lymph % (Auto) Wood % (Auto) 14.5 H Lymph # 0.8 L Seg Neutrophils % Seg Neuts % (Manual) Monocytes % (Manual) Lymphocytes # (Manual) POC ABG pH Potassium 3.4 L Carbon Dioxide BUN Creatinine Glucose Calcium 8.1 L Magnesium AST 63 H Total Protein 6.2 L D Albumin 3.4 L Lipase 2425 H Urine WBC (Auto) 10/28/18 10/29/18 10/29/18 20:45 04:49 04:49 RBC 3.14 L Hgb 10.7 L Hct 30.7 L MCV 98 H MCH 34 H MCHC 35 H Plt Count 137 L Lymph % (Auto) Wood % (Auto) Lymph # Seg Neutrophils % Seg Neuts % (Manual) Monocytes % (Manual) 10.0 H Lymphocytes # (Manual) 0.8 L POC ABG pH 7.511 H Potassium 3.4 L Carbon Dioxide 18 L BUN 8 L Creatinine 0.5 L Glucose 101 H Calcium 7.8 L Magnesium AST 47 H Total Protein 5.7 L Albumin 2.7 L Lipase Urine WBC (Auto) 10/29/18 10/29/18 10/30/18 09:48 09:48 05:28 RBC 3.07 L Hgb 10.4 L Hct 29.4 L MCV 96 H MCH 34 H MCHC 35 H Plt Count Lymph % (Auto) Wood % (Auto) Lymph # Seg Neutrophils % Seg Neuts % (Manual) 81.0 H Monocytes % (Manual) Lymphocytes # (Manual) 0.6 L POC ABG pH Potassium Carbon Dioxide BUN Creatinine Glucose Calcium Magnesium 1.40 L AST Total Protein Albumin Lipase 1628 H Urine WBC (Auto) 10/30/18 05:28 RBC Hgb Hct MCV MCH MCHC Plt Count Lymph % (Auto) Wood % (Auto) Lymph # Seg Neutrophils % Seg Neuts % (Manual) Monocytes % (Manual) Lymphocytes # (Manual) POC ABG pH Potassium 3.3 L Carbon Dioxide 19 L BUN 7 L Creatinine 0.5 L Glucose 103 H Calcium 7.7 L Magnesium AST 41 H Total Protein 5.6 L Albumin 2.9 L Lipase Urine WBC (Auto) Chest x-ray: pending Allied health notes reviewed: nursing
--- NOTE | 2018-10-30 14:19 | Progress Note ---
Assessment and Plan - Alcohol withdrawal syndrome with DT - presented with tachycardia diaphoresis for which he was transdferd to the unit 10/28/18 cont CIWA protocol, Thiamine, folic Acid, Multivitamin daily, ativan prn, IVF resuscitation therapy - Encephalopathy CT Head, neuro checks, IVF resuscitation therapy, seizure precautions, fall precautions, neuro checks. - Acute pancreatitis CT Abdomen/pelvis, serial abdominal exam, IVF resuscitation therapy, bowel rest, No evidence of necrosis on CT abdomen - Hypomagnesemia - am Mg level pending Supplement further if still low - DVT prophylaxis SCD to BLE while in bed, prophylactic lovenox The high probability of a clinically significant, sudden or life threatening deterioration of the system(s) required my full and direct attention, intervention and personal management. The aggregate critical care time was [32] minutes. This time is in addition to time spent performing reported procedures but includes the following: [x] Data Review and interpretation [x] Patient assessment and monitoring of vital signs [x] Documentation [x] Medication orders and management Brief history: 53 YO Male with ETOH Dependence last drink of ETOH was 5 days ago presents to ED for increased confusion, tremors, and unsteady gait resulting in multiple falls without injury over the past 2 days with worsening symptoms over the past 1 day. EMS was notified, and upon arrival to ER the patient was found to have ETOH Withdrawl complicated by Delirium, and Encephalopathy, Acidosis, and ETOH pancreatitis. Pt admitted to Medical Floor, and initiated on CIWA protocol, as well as IVF resuscitation therapy. Objective Constitutional: More alert but still confused Head: Normocephalic atraumatic Eyes: Pupils are equal round and reactive to light Nose: No enlarged turbinates, no septal deviation. Mouth: Moist mucous membranes. Neck: Supple no thyromegaly. No bruit. No JVD Heart: Tachycardic S1-S2 normal. No rubs murmurs or gallop Lungs: Clear to auscultation bilaterally. no rales or rhonchi Abdomen: Soft, nontender. Bowel sound are present. Extremities: No edema, no cyanosis, no clubbing. Neuro: Confused Skin: No rashes or hyperpigmented spots Musculoskeletal system: No joint pain or swelling Psychiatry: Confused Subjective Date of service: 10/30/18 Principal diagnosis: DT, alcohol withdrawal Interval history: Patient's seen and examined. Discussed with the patient's nurse. No overnoght event reported to me. patient still appears confused Objective - Constitutional Vitals: Vital Signs - 12hr 10/30/18 10/30/18 10/30/18 02:30 02:40 03:00 Temperature Pulse Rate 90 99 H 96 H Pulse Rate [ From Monitor] Respiratory 13 18 10 L Rate Blood Pressure 88/57 103/76 O2 Sat by Pulse 99 100 100 Oximetry 10/30/18 10/30/18 10/30/18 03:30 04:00 04:30 Temperature 98.0 F Pulse Rate 85 85 83 Pulse Rate [ 82 From Monitor] Respiratory 11 L 11 L 11 L Rate Blood Pressure 92/64 91/63 100/57 O2 Sat by Pulse 100 100 100 Oximetry 10/30/18 10/30/18 10/30/18 05:01 05:30 06:00 Temperature Pulse Rate 88 94 H 93 H Pulse Rate [ From Monitor] Respiratory 10 L 12 11 L Rate Blood Pressure 91/63 110/79 116/79 O2 Sat by Pulse 100 100 100 Oximetry 10/30/18 10/30/18 10/30/18 06:30 07:00 07:30 Temperature Pulse Rate 86 91 H 90 Pulse Rate [ From Monitor] Respiratory 11 L 12 12 Rate Blood Pressure 124/80 135/89 133/86 O2 Sat by Pulse 100 98 100 Oximetry 10/30/18 10/30/18 08:00 08:30 Temperature 97.3 F L Pulse Rate 90 92 H Pulse Rate [ 88 From Monitor] Respiratory 12 11 L Rate Blood Pressure 123/90 123/90 O2 Sat by Pulse 100 100 Oximetry - Labs CBC & Chem 7: 10/30/18 05:28 10/30/18 05:28 Labs: Abnormal lab results 10/30/18 10/30/18 10/30/18 Range/Units 05:28 05:28 10:17 RBC 3.07 L (3.65-5.03) M/mm3 Hgb 10.4 L (11.8-15.2) gm/dl Hct 29.4 L (35.5-45.6) % MCV 96 H (84-94) fl MCH 34 H (28-32) pg MCHC 35 H (32-34) % Seg Neuts % (Manual) 81.0 H (40.0-70.0) % Lymphocytes # (Manual) 0.6 L (1.2-5.4) K/mm3 Potassium 3.3 L (3.6-5.0) mmol/L Carbon Dioxide 19 L (22-30) mmol/L BUN 7 L (9-20) mg/dL Creatinine 0.5 L (0.8-1.5) mg/dL Glucose 103 H (75-100) mg/dL Calcium 7.7 L (8.4-10.2) mg/dL AST 41 H (5-40) units/L Total Protein 5.6 L (6.3-8.2) g/dL Albumin 2.9 L (3.9-5) g/dL Lipase 796 H (13-60) units/L
[2018-10-30] MEDS ORDERED: POTASSIUM CHLORIDE FEEDTUBE ONE (15:00)
[2018-10-30] MEDS ORDERED: MAGNESIUM SULFATE 2GM/50ML 2 GM/50 ML BAG IV ONE (15:30)
[2018-10-30] MEDS: ATIVAN IV PRN (16:02)
[2018-10-30] MEDS: LOVENOX SUB-Q SCH (21:15)
[2018-10-31] MEDS: D5NS 1,000 ML IV SCH ×2 (04:10→17:18)
[2018-10-31 06:13] LABS: Hematocrit 27.8 % (35.5-45.6); Mean Corpuscular HGB Conc 36 % (32-34); Mean Corpuscular Volume 95 fl (84-94); Platelet Count 185 K/mm3 (140-440); Red Blood Count 2.91 M/mm3 (3.65-5.03); Red Cell Distribution Width 13.7 % (13.2-15.2)
[2018-10-31 06:42] LABS: Alanine Aminotransferase 19 units/L (7-56); Albumin 2.9 g/dL (3.9-5); BUN/Creatinine Ratio 16; Blood Urea Nitrogen 8 mg/dL (9-20); Calcium 8.3 mg/dL (8.4-10.2); Hemolysis Index 5
--- NOTE | 2018-10-31 07:40 | Progress Note ---
Assessment and Plan Assessment and plan: 53 YO Male with ETOH Dependence last drink of ETOH was 5 days ago presents to ED for increased confusion, tremors, and unsteady gait resulting in multiple falls without injury over the past 2 days with worsening symptoms over the past 1 day. EMS was notified, and upon arrival to ER the patient was found to have ETOH Withdrawl complicated by Delirium, and Encephalopathy, Acidosis, and ETOH pancreatitis. Pt admitted to Medical Floor, and initiated on CIWA protocol, as well as IVF resuscitation therapy. Alcohol withdrawal syndrome with DT - presented with tachycardia diaphoresis for which he was transdferd to the unit 10/28/18 - cont CIWA protocol, - Thiamine, folic Acid, - Multivitamin daily, ativan prn, - IVF resuscitation therapy Encephalopathy - CT Head no acute IC findings, neuro checks, - IVF resuscitation therapy, seizure precautions, fall precautions, neuro checks. Acute pancreatitis - CT Abdomen/pelvis consistent with pancreatitis, serial abdominal exam, IVF resuscitation therapy, bowel rest, - No evidence of necrosis on CT abdomen Hypomagnesemia - supplemented and noprmalized DVT prophylaxis - SCD to BLE while in bed, prophylactic lovenox The high probability of a clinically significant, sudden or life threatening deterioration of the [neurologic, GI] system(s) required my full and direct attention, intervention and personal management. The aggregate critical care time was [32] minutes. This time is in addition to time spent performing reported procedures but includes the following: [x] Data Review and interpretation [x] Patient assessment and monitoring of vital signs [x] Documentation [x] Medication orders and management History Interval history: Patient was see and evaluated this morning, patient was lethargic and on BIPAP. Hospitalist Physical - Constitutional Vitals: Temp Pulse Resp BP Pulse Ox 98.7 F 107 H 15 147/94 100 10/31/18 03:26 10/31/18 06:12 10/31/18 06:12 10/31/18 06:01 10/31/18 06:12 General appearance: Present: mild distress, disheveled Results - Labs CBC & Chem 7: 10/31/18 05:58 10/31/18 05:58 Labs: Laboratory Last Values WBC 5.1 K/mm3 (4.5-11.0) 10/31/18 05:58 RBC 2.91 M/mm3 (3.65-5.03) L 10/31/18 05:58 Hgb 10.0 gm/dl (11.8-15.2) L 10/31/18 05:58 Hct 27.8 % (35.5-45.6) L 10/31/18 05:58 MCV 95 fl (84-94) H 10/31/18 05:58 MCH 34 pg (28-32) H 10/31/18 05:58 MCHC 36 % (32-34) H 10/31/18 05:58 RDW 13.7 % (13.2-15.2) 10/31/18 05:58 Plt Count 185 K/mm3 (140-440) 10/31/18 05:58 Lymph % (Auto) 14.7 % (13.4-35.0) 10/28/18 06:39 [place] % (Auto) Fittings Finisher 10/31/18 05:58 Eos % (Auto) 0.1 % (0.0-4.3) 10/28/18 06:39 Baso % (Auto) 0.8 % (0.0-1.8) 10/28/18 06:39 Lymph # 0.8 K/mm3 (1.2-5.4) L 10/28/18 06:39 [place] # 0.8 K/mm3 (0.0-0.8) 10/28/18 06:39 Eos # 0.0 K/mm3 (0.0-0.4) 10/28/18 06:39 Baso # 0.0 K/mm3 (0.0-0.1) 10/28/18 06:39 Add Manual Diff Complete 10/30/18 05:28 Total Counted 100 10/30/18 05:28 Seg Neutrophils % 69.9 % (40.0-70.0) 10/28/18 06:39 Seg Neuts % (Manual) 81.0 % (40.0-70.0) H 10/30/18 05:28 0 % 10/30/18 05:28 14.0 % (13.4-35.0) 10/30/18 05:28 Reactive Lymphs % (Man) 0 % 10/30/18 05:28 4.0 % (0.0-7.3) 10/30/18 05:28 1.0 % (0.0-4.3) 10/30/18 05:28 0 % (0.0-1.8) 10/30/18 05:28 0 % 10/30/18 05:28 0 % 10/30/18 05:28 0 % 10/30/18 05:28 0 % 10/30/18 05:28 Nucleated RBC % Not Reportable 10/30/18 05:28 Seg Neutrophils # 3.7 K/mm3 (1.8-7.7) 10/28/18 06:39 Seg Neutrophils # Man 3.7 K/mm3 (1.8-7.7) 10/30/18 05:28 Band Neutrophils # 0.0 K/mm3 10/30/18 05:28 0.6 K/mm3 (1.2-5.4) L 10/30/18 05:28 Abs React Lymphs (Man) 0.0 K/mm3 10/30/18 05:28 0.2 K/mm3 (0.0-0.8) 10/30/18 05:28 0.0 K/mm3 (0.0-0.4) 10/30/18 05:28 0.0 K/mm3 (0.0-0.1) 10/30/18 05:28 0.0 K/mm3 10/30/18 05:28 0.0 K/mm3 10/30/18 05:28 0.0 K/mm3 10/30/18 05:28 Blast Cells # 0.0 K/mm3 10/30/18 05:28 WBC Morphology Not Reportable 10/30/18 05:28 Hypersegmented Neuts Not Reportable 10/30/18 05:28 Hyposegmented Neuts Not Reportable 10/30/18 05:28 Hypogranular Neuts Not Reportable 10/30/18 05:28 Not Reportable 10/30/18 05:28 Not Reportable 10/30/18 05:28 Not Reportable 10/30/18 05:28 Not Reportable 10/30/18 05:28 Not Reportable 10/30/18 05:28 Not Reportable 10/30/18 05:28 Consistent w auto 10/30/18 05:28 Not Reportable 10/30/18 05:28 Plt Clumps, EDTA Not Reportable 10/30/18 05:28 Not Reportable 10/30/18 05:28 Not Reportable 10/30/18 05:28 Not Reportable 10/30/18 05:28 Plt Morphology Comment Not Reportable 10/30/18 05:28 RBC Morphology Not Reportable 10/30/18 05:28 Dimorphic RBCs Not Reportable 10/30/18 05:28 Not Reportable 10/30/18 05:28 Not Reportable 10/30/18 05:28 Not Reportable 10/30/18 05:28 1+ 10/30/18 05:28 Not Reportable 10/30/18 05:28 Not Reportable 10/30/18 05:28 Not Reportable 10/30/18 05:28 Not Reportable 10/30/18 05:28 Not Reportable 10/30/18 05:28 Not Reportable 10/30/18 05:28 Not Reportable 10/30/18 05:28 Not Reportable 10/30/18 05:28 Not Reportable 10/30/18 05:28 Not Reportable 10/30/18 05:28 Not Reportable 10/30/18 05:28 Not Reportable 10/30/18 05:28 Not Reportable 10/30/18 05:28 Not Reportable 10/30/18 05:28 Not Reportable 10/30/18 05:28 Acanthocytes (Spur) Not Reportable 10/30/18 05:28 Rouleaux Not Reportable 10/30/18 05:28 Not Reportable 10/30/18 05:28 Not Reportable 10/30/18 05:28 Not Reportable 10/30/18 05:28 Not Reportable 10/30/18 05:28 Hem Pathologist Commnt No 10/30/18 05:28 POC ABG pH 7.511 (7.35-7.45) H 10/28/18 20:45 POC ABG pO2 98 (80-105) 10/28/18 20:45 POC ABG HCO3 20.2 (22-26 mml/L) 10/28/18 20:45 POC ABG Total CO2 21 (23-27mmol/L) 10/28/18 20:45 POC ABG O2 Sat 98 10/28/18 20:45 POC ABG Base Excess -3 ((-2) - (+3)mmol/L) 10/28/18 20:45 28 % 10/28/18 20:45 Sodium 136 mmol/L (137-145) L 10/31/18 05:58 Potassium 3.7 mmol/L (3.6-5.0) 10/31/18 05:58 Chloride 103.4 mmol/L (98-107) 10/31/18 05:58 Carbon Dioxide 18 mmol/L (22-30) L 10/31/18 05:58 18 mmol/L 10/31/18 05:58 BUN 8 mg/dL (9-20) L 10/31/18 05:58 0.5 mg/dL (0.8-1.5) L 10/31/18 05:58 Estimated GFR > 60 ml/min 10/31/18 05:58 16 % 10/31/18 05:58 Glucose 122 mg/dL (75-100) H 10/31/18 05:58 POC Glucose 104 (70-105) 10/28/18 17:49 Calcium 8.3 mg/dL (8.4-10.2) L 10/31/18 05:58 Phosphorus 3.60 mg/dL (2.5-4.5) 10/29/18 04:49 Magnesium 1.70 mg/dL (1.7-2.3) 10/30/18 22:39 0.60 mg/dL (0.1-1.2) 10/31/18 05:58 AST 54 units/L (5-40) H 10/31/18 05:58 ALT 19 units/L (7-56) 10/31/18 05:58 50 units/L (35-129) 10/31/18 05:58 5.8 g/dL (6.3-8.2) L 10/31/18 05:58 2.9 g/dL (3.9-5) L 10/31/18 05:58 1.0 % 10/31/18 05:58 796 units/L (13-60) H 10/30/18 10:17 Yellow (Yellow) 10/28/18 Unknown Slightly-cloudy (Clear) 10/28/18 Unknown 5.0 (5.0-7.0) 10/28/18 Unknown Ur Specific [place] 1.013 (1.003-1.030) 10/28/18 Unknown 30 mg/dl mg/dL (Negative) 10/28/18 Unknown Neg mg/dL (Negative) 10/28/18 Unknown Tr mg/dL (Negative) 10/28/18 Unknown Sm (Negative) 10/28/18 Unknown Neg (Negative) 10/28/18 Unknown Neg (Negative) 10/28/18 Unknown < 2.0 mg/dL (<2.0) 10/28/18 Unknown Ur Leukocyte Esterase Neg (Negative) 10/28/18 Unknown 1.0 /HPF (0.0-6.0) 10/28/18 Unknown 2.0 /HPF (0.0-6.0) 10/28/18 Unknown U Epithel Cells (Auto) < 1.0 /HPF (0-13.0) 10/28/18 Unknown 2+ /HPF (Negative) 10/27/18 13:55 Hyaline Casts 9 /LPF 10/27/18 13:55 2+ /HPF 10/27/18 13:55 Presumptive negative 10/28/18 Unknown Presumptive negative 10/28/18 Unknown Ur Barbiturates Screen Presumptive negative 10/28/18 Unknown Ur Phencyclidine Scrn Presumptive negative 10/28/18 Unknown Ur Amphetamines Screen Presumptive negative 10/28/18 Unknown U Benzodiazepines Scrn Presumptive negative 10/28/18 Unknown Presumptive negative 10/28/18 Unknown U Marijuana (THC) Screen Presumptive negative 10/28/18 Unknown Disclamer 10/28/18 Unknown Plasma/Serum Alcohol < 0.01 % (0-0.07) 10/27/18 10:33 Active Medications - Current Medications Current Medications: Generic Name Dose Route Start Last Admin Trade Name Freq PRN Reason Stop Dose Admin Acetaminophen 650 mg 10/27/18 16:05 10/29/18 23:50 Tylenol PO 650 mg Q4H PRN Administration Pain MILD(1-3)/Fever >100.5/LUNA Albuterol 2.5 mg 10/27/18 16:05 Proventil IH Q4HRT PRN Shortness Of Breath Enoxaparin Sodium 40 mg 10/27/18 22:00 10/30/18 21:15 Lovenox SUB-Q 40 mg QDAY@2200 SHANNAN Administration Folic Acid 1 mg 10/28/18 10:00 10/30/18 09:44 Folvite PO 1 mg QDAY SHANNAN Administration Dextrose/Sodium Chloride 1,000 mls @ 100 mls/hr 10/31/18 04:00 10/31/18 04:10 D5ns IV 100 mls/hr DIRECT SHANNAN Administration Lorazepam 2 mg 10/27/18 10:34 10/30/18 16:02 Ativan IV 2 mg Q1HR PRN Administration CIWA-Ar 8-15 Lorazepam 4 mg 10/27/18 10:34 10/29/18 21:38 Ativan IV 4 mg Q1HR PRN Administration CIWA-Ar 16-25 Lorazepam 4 mg 10/27/18 10:34 10/28/18 17:32 Ativan IV 4 mg Q15MIN PRN Administration CIWA-Ar >25 Multivitamins 1 each 10/28/18 10:00 10/30/18 09:44 Theragran Tab PO 1 each QDAY SHANNAN Administration Ondansetron HCl 4 mg 10/27/18 16:05 Zofran IV Q8H PRN Nausea And Vomiting Potassium Chloride 20 meq 10/29/18 10:00 10/30/18 09:44 Potassium Chloride FEEDTUBE 20 meq QDAY SHANNAN Administration Quetiapine Fumarate 200 mg 10/28/18 16:00 10/30/18 21:15 Seroquel PO 200 mg BID SHANNAN Administration Sodium Chloride 10 ml 10/27/18 22:00 10/30/18 21:16 Sodium Chloride Flush Syringe 10 Ml IV 10 ml BID SHANNAN Administration Sodium Chloride 10 ml 10/27/18 16:05 Sodium Chloride Flush Syringe 10 Ml IV PRN PRN LINE FLUSH Thiamine HCl 100 mg 10/28/18 10:00 10/30/18 09:44 Vitamin B-1 PO 100 mg QDAY SHANNAN Administration Nutrition/Malnutrition Assess - Dietary Evaluation Nutrition/Malnutrition Findings: Nutrition Notes Start: 10/29/18 11:50 Freq: Status: Active Protocol: Document 10/29/18 11:50 RM (Rec: 10/29/18 11:54 RM [id number]) Nutrition Notes Need for Assessment generated from: [facility] Initial or Follow up Brief Note Other Pertinent Diagnosis ETOH dependence, Acute pancreatitis, Alcohol withdrawal sydrome Current Diet No diet ordered Labs/Tests Reviewed Pertinent Medications Reviewed Height 5 ft Weight 91.1 kg [place] Body Weight (kg) 48.18 BMI 39.2 Subjective/Other Information Screened for malnutrition. Pt asleep at time of visit. No orbital or temporal wasting. Burn Absent Trauma Absent Nutrition Intervention Follow-Up By: 10/31/18 Additional Comments Follow for malnutrition assessment
[2018-10-31 10:16] LABS: Band Neutrophils # (Manual) 0.1 K/mm3; Basophils % (Manual) 0 % (0.0-1.8); Eosinophils % (Manual) 0 % (0.0-4.3); Total Cells Counted 100
[2018-10-31 10:17] LABS: Anisocytosis 1+; Platelet Estimate Consistent w Auto; Schistocytes Rare
[2018-10-31] MEDS: VITAMIN B-1 PO SCH (10:47)
[2018-10-31] MEDS: FOLVITE PO SCH (10:47)
[2018-10-31] MEDS: THERAGRAN Tab PO SCH (10:47)
[2018-10-31] MEDS: POTASSIUM CHLORIDE FEEDTUBE SCH (10:47)
[2018-10-31] MEDS: SODIUM CHLORIDE FLUSH SYRINGE 10 ML IV SCH ×2 (10:48→22:40)
--- NOTE | 2018-10-31 12:29 | XRay Report ---
AP CHEST: HISTORY: Hypoxemia There is poor inspiration. AP view of the chest demonstrates a normal mediastinal and cardiac contour with clear lungs and normal bony and soft tissue structures. Nasogastric tube terminates in the fundus of the stomach. IMPRESSION: Grossly negative expiratory AP chest.
--- NOTE | 2018-10-31 12:34 | Progress Note ---
Assessment and Plan Acute pancreatitis. Alcohol withdrawal with delirium tremens. Hypomagnesemia. Acute toxic metabolic encephalopathy. Obesity. Hypokalemia. Elevated serum transaminase. - get KUB re: ? ileus - continue BIPAP scheduled qhs for ventilatory support - continue aspiration precautions - continue CIWA protocol - transaminases improved - keeping NPO for now - lipase trending down - prn analgesia - continue electrolyte replacement - continue supplemental oxygen to keep sats > 90% - continue GI & VTE prophylaxis - PT/OT as tolerated - mobility protocol for pressure ulcer prophylacis - flu & pneumovax per protocol ... transfer to telemetry OK ... re-evaluate in am & prn Subjective Date of service: 10/31/18 Principal diagnosis: Acute pancreatitis; DT's; Hypomagnesemia; Acute encephalopathy (toxic/met) Interval history: Patient is seen today for: Acute pancreatitis; Alcohol withdrawal with delirium tremens; Hypomagnesemia; Acute toxic metabolic encephalopathy; Obesity; Elevated serum transaminase. Seen and examined at bedside; 24hour events reviewed; nursing and respiratory care staff consulted; no adverse overnight events reported to me; remains on CIWA protocol; CIWA scores significantly improved; still with delirium; denies epigastric pain; states he is not hungry; No N/V/F/C; hemodynamically stable; tolerating BIPAP qhs Objective Vital Signs - 12hr 10/31/18 10/31/18 10/31/18 00:30 01:00 01:31 Temperature Pulse Rate 116 H 113 H 117 H Pulse Rate [ From Monitor] Respiratory 12 17 16 Rate Blood Pressure 115/80 135/75 143/77 O2 Sat by Pulse 100 100 100 Oximetry 10/31/18 10/31/18 10/31/18 02:00 02:30 03:00 Temperature Pulse Rate 113 H 112 H 115 H Pulse Rate [ From Monitor] Respiratory 10 L 15 16 Rate Blood Pressure 121/82 113/83 112/77 O2 Sat by Pulse 99 99 99 Oximetry 10/31/18 10/31/18 10/31/18 03:26 03:30 04:00 Temperature 98.7 F Pulse Rate 110 H 110 H Pulse Rate [ 118 H From Monitor] Respiratory 15 19 Rate Blood Pressure 109/72 98/77 O2 Sat by Pulse 99 99 Oximetry 10/31/18 10/31/18 10/31/18 04:31 05:00 05:30 Temperature Pulse Rate 121 H 110 H 108 H Pulse Rate [ From Monitor] Respiratory 24 17 20 Rate Blood Pressure 98/77 129/84 147/94 O2 Sat by Pulse 99 100 100 Oximetry 10/31/18 10/31/18 10/31/18 06:01 06:12 08:00 Temperature 99.7 F H Pulse Rate 106 H 107 H Pulse Rate [ From Monitor] Respiratory 17 15 Rate Blood Pressure 147/94 O2 Sat by Pulse 100 100 Oximetry Constitutional: no acute distress, other (middle aged obese male, normocephalic and atraumatic) Eyes: non-icteric ENT: oropharynx moist Neck: supple, no lymphadenopathy, no JVD, other (large neck circumference) Effort: mildly labored Ascultation: Bilateral: diminished breath sounds, rhonchi Percussion: Bilateral: not dull Cardiovascular: regular rate and rhythm, other (No R/M) Gastrointestinal: normoactive bowel sounds, soft, tender (mild in epigastrium) Integumentary: normal Extremities: no cyanosis, no edema, pulses normal, no ischemia or petechiae Neurologic: non-focal exam (grossly), pupils equal and round, motor strength normal and Psychiatric: other (delirious (calm delirium)) CBC and BMP: 10/31/18 05:58 10/31/18 05:58 ABG, PT/INR, D-dimer: ABG POC ABG pH 7.511 (7.35-7.45) H 10/28/18 20:45 POC ABG pO2 98 (80-105) 10/28/18 20:45 POC ABG HCO3 20.2 (22-26 mml/L) 10/28/18 20:45 POC ABG Total CO2 21 (23-27mmol/L) 10/28/18 20:45 POC ABG O2 Sat 98 10/28/18 20:45 Abnormal lab findings: Abnormal Labs 10/27/18 10/27/18 10/27/18 10:33 10:33 13:55 RBC Hgb Hct 35.2 L MCV 96 H MCH 34 H MCHC 35 H Plt Count Lymph % (Auto) 7.4 L [place] % (Auto) 8.6 H Lymph # 0.4 L Seg Neutrophils % 83.0 H Seg Neuts % (Manual) Lymphocytes % (Manual) Monocytes % (Manual) Lymphocytes # (Manual) Monocytes # (Manual) POC ABG pH Sodium Potassium 3.5 L Carbon Dioxide 17 L BUN 7 L Creatinine Glucose 175 H POC Glucose Calcium 7.3 L Magnesium 0.70 L* AST 56 H Total Protein 5.0 L Albumin 3.0 L Lipase 2791 H Urine WBC (Auto) 8.0 H 10/28/18 10/28/18 10/28/18 06:39 06:39 06:39 RBC 3.23 L Hgb 11.0 L Hct 30.9 L MCV 96 H MCH 34 H MCHC 36 H Plt Count 133 L Lymph % (Auto) [place] % (Auto) 14.5 H Lymph # 0.8 L Seg Neutrophils % Seg Neuts % (Manual) Lymphocytes % (Manual) Monocytes % (Manual) Lymphocytes # (Manual) Monocytes # (Manual) POC ABG pH Sodium Potassium 3.4 L Carbon Dioxide BUN Creatinine Glucose POC Glucose Calcium 8.1 L Magnesium AST 63 H Total Protein 6.2 L D Albumin 3.4 L Lipase 2425 H Urine WBC (Auto) 10/28/18 10/29/18 10/29/18 20:45 04:49 04:49 RBC 3.14 L Hgb 10.7 L Hct 30.7 L MCV 98 H MCH 34 H MCHC 35 H Plt Count 137 L Lymph % (Auto) [place] % (Auto) Lymph # Seg Neutrophils % Seg Neuts % (Manual) Lymphocytes % (Manual) Monocytes % (Manual) 10.0 H Lymphocytes # (Manual) 0.8 L Monocytes # (Manual) POC ABG pH 7.511 H Sodium Potassium 3.4 L Carbon Dioxide 18 L BUN 8 L Creatinine 0.5 L Glucose 101 H POC Glucose Calcium 7.8 L Magnesium AST 47 H Total Protein 5.7 L Albumin 2.7 L Lipase Urine WBC (Auto) 10/29/18 10/29/18 10/30/18 09:48 09:48 05:28 RBC 3.07 L Hgb 10.4 L Hct 29.4 L MCV 96 H MCH 34 H MCHC 35 H Plt Count Lymph % (Auto) [place] % (Auto) Lymph # Seg Neutrophils % Seg Neuts % (Manual) 81.0 H Lymphocytes % (Manual) Monocytes % (Manual) Lymphocytes # (Manual) 0.6 L Monocytes # (Manual) POC ABG pH Sodium Potassium Carbon Dioxide BUN Creatinine Glucose POC Glucose Calcium Magnesium 1.40 L AST Total Protein Albumin Lipase 1628 H Urine WBC (Auto) 10/30/18 10/30/18 10/31/18 05:28 10:17 05:58 RBC 2.91 L Hgb 10.0 L Hct 27.8 L MCV 95 H MCH 34 H MCHC 36 H Plt Count Lymph % (Auto) [place] % (Auto) Lymph # Seg Neutrophils % Seg Neuts % (Manual) 79.0 H Lymphocytes % (Manual) 3.0 L Monocytes % (Manual) 17.0 H Lymphocytes # (Manual) 0.2 L Monocytes # (Manual) 0.9 H POC ABG pH Sodium Potassium 3.3 L Carbon Dioxide 19 L BUN 7 L Creatinine 0.5 L Glucose 103 H POC Glucose Calcium 7.7 L Magnesium AST 41 H Total Protein 5.6 L Albumin 2.9 L Lipase 796 H Urine WBC (Auto) 10/31/18 10/31/18 05:58 12:13 RBC Hgb Hct MCV MCH MCHC Plt Count Lymph % (Auto) [place] % (Auto) Lymph # Seg Neutrophils % Seg Neuts % (Manual) Lymphocytes % (Manual) Monocytes % (Manual) Lymphocytes # (Manual) Monocytes # (Manual) POC ABG pH Sodium 136 L Potassium Carbon Dioxide 18 L BUN 8 L Creatinine 0.5 L Glucose 122 H POC Glucose 147 H Calcium 8.3 L Magnesium AST 54 H Total Protein 5.8 L Albumin 2.9 L Lipase Urine WBC (Auto) Chest x-ray: image reviewed (hypoventilation with vascular crowding; large loops of bowel seen) Allied health notes reviewed: nursing
[2018-10-31] MEDS: ATIVAN IV PRN (18:44)
[2018-10-31] MEDS: LOVENOX SUB-Q SCH (22:39)
[2018-11-01] MEDS: D5NS 1,000 ML IV SCH ×2 (03:05→16:00)
[2018-11-01] MEDS: TYLENOL PO PRN (04:07)
--- NOTE | 2018-11-01 04:31 | Event Note ---
Date: 11/01/18 Received call from SRAVANI Samson. Pt has oral temp of 101, HR 119, BP 134/86. Ordered CXR, Lactic Acid and Blood Cultures. AM CBC pending lab draw. Since pt had multiple episodes of diarrhea/ loose stools will hold off on empiric Abx pending results.
[2018-11-01 05:00] LABS: Hematocrit 29.9 % (35.5-45.6); Hemoglobin 10.7 gm/dl (11.8-15.2); Mean Corpuscular HGB Conc 36 % (32-34); Mean Corpuscular Volume 94 fl (84-94); Platelet Count 295 K/mm3 (140-440); Red Blood Count 3.17 M/mm3 (3.65-5.03)
[2018-11-01 05:22] LABS: Alanine Aminotransferase 22 units/L (7-56); Albumin 2.9 g/dL (3.9-5); BUN/Creatinine Ratio 16; Blood Urea Nitrogen 14 mg/dL (9-20); Calcium 8.5 mg/dL (8.4-10.2); Hemolysis Index 5
[2018-11-01 05:48] LABS: Anisocytosis 1+; Band Neutrophils # (Manual) 0.1 K/mm3; Basophils % (Manual) 0 % (0.0-1.8); Eosinophils % (Manual) 0 % (0.0-4.3); Large Platelets 1+; Total Cells Counted 100
[2018-11-01 05:49] LABS: Platelet Estimate Consistent w Auto
[2018-11-01] MEDS ORDERED: K-DUR PO NR ×2 (08:02→08:15)
[2018-11-01] MEDS ORDERED: POTASSIUM CHLORIDE FEEDTUBE NR (08:30)
--- NOTE | 2018-11-01 08:50 | XRay Report ---
Chest 2 views: Compared to 10/31/18. History: Change in condition. Febrile. Findings: Borderline cardiomegaly. Trachea is midline. No consolidation, pneumothorax or pleural effusion. Impression: No acute cardiopulmonary findings.
--- NOTE | 2018-11-01 11:26 | Progress Note ---
Assessment and Plan Patient awake. Resting on 1 litre O2.O2 saturation 97%. No acute respiratory distress. - Patient Problems (1) Alcohol withdrawal syndrome Current Visit: Yes Status: Acute Qualifiers: Complication of substance-induced condition: with unspecified complication Qualified Code(s): F10.239 - Alcohol dependence with withdrawal, unspecified Plan to address problem: Patient is on Lorazepam. Management as per primary care. (2) Acute pancreatitis Current Visit: Yes Status: Acute Qualifiers: Pancreatitis type: alcohol induced Acute pancreatitis complication: unspecified Qualified Code(s): K85.20 - Alcohol induced acute pancreatitis without necrosis or infection Plan to address problem: Management as per primary care. Subjective Date of service: 11/01/18 Principal diagnosis: Acute pancreatitis; DT's; Hypomagnesemia; Acute en cephalopathy (toxic/met) Interval history: Patient awake. Resting on 1 litre O2.O2 saturation 97%. No acute respiratory distress. Objective Vital Signs - 12hr 11/01/18 11/01/18 11/01/18 03:48 04:07 04:20 Temperature 101.0 F H 101 F H Pulse Rate 119 H Respiratory 19 20 Rate Blood Pressure 134/86 O2 Sat by Pulse Oximetry 11/01/18 11/01/18 11/01/18 05:07 06:19 07:42 Temperature 99.1 F 97.8 F Pulse Rate 114 H Respiratory 20 18 Rate Blood Pressure 141/85 O2 Sat by Pulse 97 Oximetry Constitutional: no acute distress, alert, other (middle aged obese male, normocephalic and atraumatic) Eyes: non-icteric ENT: oropharynx moist Neck: supple, no lymphadenopathy, no JVD, other (large neck circumference) Effort: mildly labored Ascultation: Bilateral: diminished breath sounds, rhonchi Percussion: Bilateral: not dull Cardiovascular: regular rate and rhythm, other (No R/M) Gastrointestinal: normoactive bowel sounds, soft, tender (mild in epigastrium) Integumentary: normal Extremities: no cyanosis, no edema, pulses normal, no ischemia or petechiae Neurologic: non-focal exam (grossly), pupils equal and round, motor strength normal and Psychiatric: other (delirious (calm delirium)) CBC and BMP: 11/01/18 04:50 11/01/18 04:50 ABG, PT/INR, D-dimer: ABG POC ABG pH 7.511 (7.35-7.45) H 10/28/18 20:45 POC ABG pO2 98 (80-105) 10/28/18 20:45 POC ABG HCO3 20.2 (22-26 mml/L) 10/28/18 20:45 POC ABG Total CO2 21 (23-27mmol/L) 10/28/18 20:45 POC ABG O2 Sat 98 10/28/18 20:45 Abnormal lab findings: Abnormal Labs 10/27/18 10/27/18 10/27/18 10:33 10:33 13:55 WBC RBC Hgb Hct 35.2 L MCV 96 H MCH 34 H MCHC 35 H Plt Count Lymph % (Auto) 7.4 L [place] % (Auto) 8.6 H Lymph # 0.4 L Seg Neutrophils % 83.0 H Seg Neuts % (Manual) Lymphocytes % (Manual) Monocytes % (Manual) Lymphocytes # (Manual) Monocytes # (Manual) POC ABG pH Sodium Potassium 3.5 L Carbon Dioxide 17 L BUN 7 L Creatinine Glucose 175 H POC Glucose Calcium 7.3 L Magnesium 0.70 L* AST 56 H Total Protein 5.0 L Albumin 3.0 L Lipase 2791 H Urine WBC (Auto) 8.0 H 10/28/18 10/28/18 10/28/18 06:39 06:39 06:39 WBC RBC 3.23 L Hgb 11.0 L Hct 30.9 L MCV 96 H MCH 34 H MCHC 36 H Plt Count 133 L Lymph % (Auto) [place] % (Auto) 14.5 H Lymph # 0.8 L Seg Neutrophils % Seg Neuts % (Manual) Lymphocytes % (Manual) Monocytes % (Manual) Lymphocytes # (Manual) Monocytes # (Manual) POC ABG pH Sodium Potassium 3.4 L Carbon Dioxide BUN Creatinine Glucose POC Glucose Calcium 8.1 L Magnesium AST 63 H Total Protein 6.2 L D Albumin 3.4 L Lipase 2425 H Urine WBC (Auto) 10/28/18 10/29/18 10/29/18 20:45 04:49 04:49 WBC RBC 3.14 L Hgb 10.7 L Hct 30.7 L MCV 98 H MCH 34 H MCHC 35 H Plt Count 137 L Lymph % (Auto) [place] % (Auto) Lymph # Seg Neutrophils % Seg Neuts % (Manual) Lymphocytes % (Manual) Monocytes % (Manual) 10.0 H Lymphocytes # (Manual) 0.8 L Monocytes # (Manual) POC ABG pH 7.511 H Sodium Potassium 3.4 L Carbon Dioxide 18 L BUN 8 L Creatinine 0.5 L Glucose 101 H POC Glucose Calcium 7.8 L Magnesium AST 47 H Total Protein 5.7 L Albumin 2.7 L Lipase Urine WBC (Auto) 10/29/18 10/29/18 10/30/18 09:48 09:48 05:28 WBC RBC 3.07 L Hgb 10.4 L Hct 29.4 L MCV 96 H MCH 34 H MCHC 35 H Plt Count Lymph % (Auto) [place] % (Auto) Lymph # Seg Neutrophils % Seg Neuts % (Manual) 81.0 H Lymphocytes % (Manual) Monocytes % (Manual) Lymphocytes # (Manual) 0.6 L Monocytes # (Manual) POC ABG pH Sodium Potassium Carbon Dioxide BUN Creatinine Glucose POC Glucose Calcium Magnesium 1.40 L AST Total Protein Albumin Lipase 1628 H Urine WBC (Auto) 10/30/18 10/30/18 10/31/18 05:28 10:17 05:58 WBC RBC 2.91 L Hgb 10.0 L Hct 27.8 L MCV 95 H MCH 34 H MCHC 36 H Plt Count Lymph % (Auto) [place] % (Auto) Lymph # Seg Neutrophils % Seg Neuts % (Manual) 79.0 H Lymphocytes % (Manual) 3.0 L Monocytes % (Manual) 17.0 H Lymphocytes # (Manual) 0.2 L Monocytes # (Manual) 0.9 H POC ABG pH Sodium Potassium 3.3 L Carbon Dioxide 19 L BUN 7 L Creatinine 0.5 L Glucose 103 H POC Glucose Calcium 7.7 L Magnesium AST 41 H Total Protein 5.6 L Albumin 2.9 L Lipase 796 H Urine WBC (Auto) 10/31/18 10/31/18 10/31/18 05:58 12:13 12:33 WBC RBC Hgb Hct MCV MCH MCHC Plt Count Lymph % (Auto) [place] % (Auto) Lymph # Seg Neutrophils % Seg Neuts % (Manual) Lymphocytes % (Manual) Monocytes % (Manual) Lymphocytes # (Manual) Monocytes # (Manual) POC ABG pH Sodium 136 L Potassium Carbon Dioxide 18 L BUN 8 L Creatinine 0.5 L Glucose 122 H POC Glucose 147 H Calcium 8.3 L Magnesium AST 54 H Total Protein 5.8 L Albumin 2.9 L Lipase 458 H Urine WBC (Auto) 11/01/18 11/01/18 04:50 04:50 WBC 3.9 L RBC 3.17 L Hgb 10.7 L Hct 29.9 L MCV MCH 34 H MCHC 36 H Plt Count Lymph % (Auto) [place] % (Auto) Lymph # Seg Neutrophils % Seg Neuts % (Manual) Lymphocytes % (Manual) Monocytes % (Manual) 22.0 H Lymphocytes # (Manual) 0.6 L Monocytes # (Manual) 0.9 H POC ABG pH Sodium Potassium 3.1 L Carbon Dioxide 18 L BUN Creatinine Glucose 177 H POC Glucose Calcium Magnesium AST 51 H Total Protein 6.2 L Albumin 2.9 L Lipase Urine WBC (Auto) Chest x-ray: report reviewed (Reported no acute cardiopulmonary process.), image reviewed Allied health notes reviewed: nursing
[2018-11-01] MEDS: FLAGYL PO SCH ×2 (11:56→18:58)
[2018-11-01] MEDS: POTASSIUM CHLORIDE FEEDTUBE SCH (11:56)
[2018-11-01] MEDS: FOLVITE PO SCH (11:56)
[2018-11-01] MEDS: SODIUM CHLORIDE FLUSH SYRINGE 10 ML IV SCH ×2 (11:57→22:53)
[2018-11-01] MEDS: VITAMIN B-1 PO SCH (11:57)
[2018-11-01] MEDS: THERAGRAN Tab PO SCH (11:57)
--- NOTE | 2018-11-01 17:06 | Progress Note ---
Assessment and Plan Assessment and plan: 53 YO Male with ETOH Dependence last drink of ETOH was 5 days ago presents to ED for increased confusion, tremors, and unsteady gait resulting in multiple falls without injury over the past 2 days with worsening symptoms over the past 1 day. EMS was notified, and upon arrival to ER the patient was found to have ETOH Withdrawl complicated by Delirium, and Encephalopathy, Acidosis, and ETOH pancreatitis. Pt admitted to Medical Floor, and initiated on CIWA protocol, as well as IVF resuscitation therapy. C.diff infection - Patient started to have diarrhea on 10/31/2018 - c.diff test is positive - Patient was started yesterday with flagyl and switched to Po vancomycin - Patient had episodes of fever Alcohol withdrawal syndrome with DT - presented with tachycardia diaphoresis for which he was transdferd to the unit 10/28/18 - cont CIWA protocol, - Thiamine, folic Acid, - Multivitamin daily, ativan prn, - IVF resuscitation therapy Encephalopathy - CT Head no acute IC findings, neuro checks, - IVF resuscitation therapy, seizure precautions, fall precautions, neuro checks. Acute pancreatitis - CT Abdomen/pelvis consistent with pancreatitis, serial abdominal exam, IVF resuscitation therapy, bowel rest, - No evidence of necrosis on CT abdomen - IMproving Hypomagnesemia - supplemented and normalized DVT prophylaxis - SCD to BLE while in bed, prophylactic lovenox History Interval history: Patient was see and evaluated this morning, patient is minimally communicative. Patient has recurrent diarrhea and on rectal tube. Hospitalist Physical - Physical exam Narrative exam: Not in cardiopulmonary distress. The patient is obese. Vital signs as documented. Head exam is unremarkable. No scleral icterus . Neck is without jugular venous distension, thyromegaly, or carotid bruits. Lungs are clear to auscultation. Cardiac exam reveals regular rate and Rhythm. s. Abdominal exam reveals distended abdomen, nontender. Extremities are nonedematous and both femoral and pedal pulses are normal. SKIING TEACHER: Sleepy and minimally communicative. - Constitutional Vitals: Temp Pulse Resp BP Pulse Ox 97.8 F 119 H 18 127/90 97 11/01/18 07:42 11/01/18 12:05 11/01/18 07:42 11/01/18 12:05 11/01/18 12:05 General appearance: Present: mild distress, disheveled Results - Labs CBC & Chem 7: 11/01/18 04:50 11/01/18 04:50 Labs: Laboratory Last Values WBC 3.9 K/mm3 (4.5-11.0) L 11/01/18 04:50 RBC 3.17 M/mm3 (3.65-5.03) L 11/01/18 04:50 Hgb 10.7 gm/dl (11.8-15.2) L 11/01/18 04:50 Hct 29.9 % (35.5-45.6) L 11/01/18 04:50 MCV 94 fl (84-94) 11/01/18 04:50 MCH 34 pg (28-32) H 11/01/18 04:50 MCHC 36 % (32-34) H 11/01/18 04:50 RDW 14.0 % (13.2-15.2) 11/01/18 04:50 Plt Count 295 K/mm3 (140-440) 11/01/18 04:50 Lymph % (Auto) 14.7 % (13.4-35.0) 10/28/18 06:39 [place] % (Auto) [employer] Team Member 11/01/18 04:50 Eos % (Auto) 0.1 % (0.0-4.3) 10/28/18 06:39 Baso % (Auto) 0.8 % (0.0-1.8) 10/28/18 06:39 Lymph # 0.8 K/mm3 (1.2-5.4) L 10/28/18 06:39 [place] # 0.8 K/mm3 (0.0-0.8) 10/28/18 06:39 Eos # 0.0 K/mm3 (0.0-0.4) 10/28/18 06:39 Baso # 0.0 K/mm3 (0.0-0.1) 10/28/18 06:39 Add Manual Diff Complete 11/01/18 04:50 Total Counted 100 11/01/18 04:50 Seg Neutrophils % 69.9 % (40.0-70.0) 10/28/18 06:39 Seg Neuts % (Manual) 60.0 % (40.0-70.0) 11/01/18 04:50 2.0 % 11/01/18 04:50 16.0 % (13.4-35.0) 11/01/18 04:50 Reactive Lymphs % (Man) 0 % 11/01/18 04:50 22.0 % (0.0-7.3) H 11/01/18 04:50 0 % (0.0-4.3) 11/01/18 04:50 0 % (0.0-1.8) 11/01/18 04:50 0 % 11/01/18 04:50 0 % 11/01/18 04:50 0 % 11/01/18 04:50 0 % 11/01/18 04:50 Nucleated RBC % Not Reportable 11/01/18 04:50 Seg Neutrophils # 3.7 K/mm3 (1.8-7.7) 10/28/18 06:39 Seg Neutrophils # Man 2.3 K/mm3 (1.8-7.7) 11/01/18 04:50 Band Neutrophils # 0.1 K/mm3 11/01/18 04:50 0.6 K/mm3 (1.2-5.4) L 11/01/18 04:50 Abs React Lymphs (Man) 0.0 K/mm3 11/01/18 04:50 0.9 K/mm3 (0.0-0.8) H 11/01/18 04:50 0.0 K/mm3 (0.0-0.4) 11/01/18 04:50 0.0 K/mm3 (0.0-0.1) 11/01/18 04:50 0.0 K/mm3 11/01/18 04:50 0.0 K/mm3 11/01/18 04:50 0.0 K/mm3 11/01/18 04:50 Blast Cells # 0.0 K/mm3 11/01/18 04:50 WBC Morphology Not Reportable 11/01/18 04:50 Hypersegmented Neuts Not Reportable 11/01/18 04:50 Hyposegmented Neuts Not Reportable 11/01/18 04:50 Hypogranular Neuts Not Reportable 11/01/18 04:50 Not Reportable 11/01/18 04:50 Not Reportable 11/01/18 04:50 Not Reportable 11/01/18 04:50 Not Reportable 11/01/18 04:50 Not Reportable 11/01/18 04:50 Not Reportable 11/01/18 04:50 Consistent w auto 11/01/18 04:50 Not Reportable 11/01/18 04:50 Plt Clumps, EDTA Not Reportable 11/01/18 04:50 1+ 11/01/18 04:50 Not Reportable 11/01/18 04:50 Not Reportable 11/01/18 04:50 Plt Morphology Comment Not Reportable 11/01/18 04:50 RBC Morphology Not Reportable 11/01/18 04:50 Dimorphic RBCs Not Reportable 11/01/18 04:50 Not Reportable 11/01/18 04:50 Not Reportable 11/01/18 04:50 Not Reportable 11/01/18 04:50 1+ 11/01/18 04:50 Not Reportable 11/01/18 04:50 Not Reportable 11/01/18 04:50 Not Reportable 11/01/18 04:50 Not Reportable 11/01/18 04:50 Not Reportable 11/01/18 04:50 Not Reportable 11/01/18 04:50 Not Reportable 11/01/18 04:50 Not Reportable 11/01/18 04:50 Not Reportable 11/01/18 04:50 Not Reportable 11/01/18 04:50 Not Reportable 11/01/18 04:50 Not Reportable 11/01/18 04:50 Not Reportable 11/01/18 04:50 Not Reportable 11/01/18 04:50 Not Reportable 11/01/18 04:50 Acanthocytes (Spur) Not Reportable 11/01/18 04:50 Rouleaux Not Reportable 11/01/18 04:50 Not Reportable 11/01/18 04:50 Not Reportable 11/01/18 04:50 Not Reportable 11/01/18 04:50 Not Reportable 11/01/18 04:50 Hem Pathologist Commnt No 11/01/18 04:50 POC ABG pH 7.511 (7.35-7.45) H 10/28/18 20:45 POC ABG pO2 98 (80-105) 10/28/18 20:45 POC ABG HCO3 20.2 (22-26 mml/L) 10/28/18 20:45 POC ABG Total CO2 21 (23-27mmol/L) 10/28/18 20:45 POC ABG O2 Sat 98 10/28/18 20:45 POC ABG Base Excess -3 ((-2) - (+3)mmol/L) 10/28/18 20:45 28 % 10/28/18 20:45 Sodium 138 mmol/L (137-145) 11/01/18 04:50 Potassium 3.1 mmol/L (3.6-5.0) L 11/01/18 04:50 Chloride 103.7 mmol/L (98-107) 11/01/18 04:50 Carbon Dioxide 18 mmol/L (22-30) L 11/01/18 04:50 19 mmol/L 11/01/18 04:50 BUN 14 mg/dL (9-20) 11/01/18 04:50 0.9 mg/dL (0.8-1.5) D 11/01/18 04:50 Estimated GFR > 60 ml/min 11/01/18 04:50 16 % 11/01/18 04:50 Glucose 177 mg/dL (75-100) H 11/01/18 04:50 POC Glucose 147 (70-105) H 10/31/18 12:13 Lactic Acid 1.30 mmol/L (0.7-2.0) 11/01/18 04:50 Calcium 8.5 mg/dL (8.4-10.2) 11/01/18 04:50 Phosphorus 3.60 mg/dL (2.5-4.5) 10/29/18 04:49 Magnesium 1.70 mg/dL (1.7-2.3) 10/30/18 22:39 0.80 mg/dL (0.1-1.2) 11/01/18 04:50 AST 51 units/L (5-40) H 11/01/18 04:50 ALT 22 units/L (7-56) 11/01/18 04:50 59 units/L (35-129) 11/01/18 04:50 6.2 g/dL (6.3-8.2) L 11/01/18 04:50 2.9 g/dL (3.9-5) L 11/01/18 04:50 0.9 % 11/01/18 04:50 277 units/L (13-60) H 11/01/18 04:50 Yellow (Yellow) 10/28/18 Unknown Slightly-cloudy (Clear) 10/28/18 Unknown 5.0 (5.0-7.0) 10/28/18 Unknown Ur Specific [place] 1.013 (1.003-1.030) 10/28/18 Unknown 30 mg/dl mg/dL (Negative) 10/28/18 Unknown Neg mg/dL (Negative) 10/28/18 Unknown Tr mg/dL (Negative) 10/28/18 Unknown Sm (Negative) 10/28/18 Unknown Neg (Negative) 10/28/18 Unknown Neg (Negative) 10/28/18 Unknown < 2.0 mg/dL (<2.0) 10/28/18 Unknown Ur Leukocyte Esterase Neg (Negative) 10/28/18 Unknown 1.0 /HPF (0.0-6.0) 10/28/18 Unknown 2.0 /HPF (0.0-6.0) 10/28/18 Unknown U Epithel Cells (Auto) < 1.0 /HPF (0-13.0) 10/28/18 Unknown 2+ /HPF (Negative) 10/27/18 13:55 Hyaline Casts 9 /LPF 10/27/18 13:55 2+ /HPF 10/27/18 13:55 Presumptive negative 10/28/18 Unknown Presumptive negative 10/28/18 Unknown Ur Barbiturates Screen Presumptive negative 10/28/18 Unknown Ur Phencyclidine Scrn Presumptive negative 10/28/18 Unknown Ur Amphetamines Screen Presumptive negative 10/28/18 Unknown U Benzodiazepines Scrn Presumptive negative 10/28/18 Unknown Presumptive negative 10/28/18 Unknown U Marijuana (THC) Screen Presumptive negative 10/28/18 Unknown Disclamer 10/28/18 Unknown Plasma/Serum Alcohol < 0.01 % (0-0.07) 10/27/18 10:33 C. difficile Tox (PCR) Positive (Negative) 11/01/18 00:10 Active Medications - Current Medications Current Medications: Generic Name Dose Route Start Last Admin Trade Name Freq PRN Reason Stop Dose Admin Acetaminophen 650 mg 10/27/18 16:05 11/01/18 04:07 Tylenol PO 650 mg Q4H PRN Administration Pain MILD(1-3)/Fever >100.5/LUNA Albuterol 2.5 mg 10/27/18 16:05 Proventil IH Q4HRT PRN Shortness Of Breath Enoxaparin Sodium 40 mg 10/27/18 22:00 10/31/18 22:39 Lovenox SUB-Q 40 mg QDAY@2200 SHANNAN Administration Folic Acid 1 mg 10/28/18 10:00 11/01/18 11:56 Folvite PO 1 mg QDAY SHANNAN Administration Dextrose/Sodium Chloride 1,000 mls @ 100 mls/hr 10/31/18 04:00 11/01/18 03:05 D5ns IV 100 mls/hr DIRECT SHANNAN Administration Lorazepam 2 mg 10/27/18 10:34 10/31/18 18:44 Ativan IV 2 mg Q1HR PRN Administration CIWA-Ar 8-15 Lorazepam 4 mg 10/27/18 10:34 10/29/18 21:38 Ativan IV 4 mg Q1HR PRN Administration CIWA-Ar 16-25 Lorazepam 4 mg 10/27/18 10:34 10/28/18 17:32 Ativan IV 4 mg Q15MIN PRN Administration CIWA-Ar >25 Multivitamins 1 each 10/28/18 10:00 11/01/18 11:57 Theragran Tab PO 1 each QDAY SHANNAN Administration Ondansetron HCl 4 mg 10/27/18 16:05 Zofran IV Q8H PRN Nausea And Vomiting Potassium Chloride 20 meq 10/29/18 10:00 11/01/18 11:56 Potassium Chloride FEEDTUBE 20 meq QDAY SHANNAN Administration Quetiapine Fumarate 200 mg 10/28/18 16:00 11/01/18 11:56 Seroquel PO 200 mg BID SHANNAN Administration Sodium Chloride 10 ml 10/27/18 22:00 11/01/18 11:57 Sodium Chloride Flush Syringe 10 Ml IV 10 ml BID SHANNAN Administration Sodium Chloride 10 ml 10/27/18 16:05 Sodium Chloride Flush Syringe 10 Ml IV PRN PRN LINE FLUSH Thiamine HCl 100 mg 10/28/18 10:00 11/01/18 11:57 Vitamin B-1 PO 100 mg QDAY SHANNAN Administration Vancomycin HCl 125 mg 11/01/18 16:57 Vancomycin Po PO Q6HR SHANNAN Nutrition/Malnutrition Assess - Dietary Evaluation Nutrition/Malnutrition Findings: Nutrition Notes Start: 10/29/18 11:50 Freq: Status: Active Protocol: Document 10/31/18 14:02 LP (Rec: 10/31/18 14:04 LP [id number]) Nutrition Notes Initial or Follow up Brief Note Subjective/Other Information No plans to feed yet. Nutrition Intervention Follow-Up By: 11/02/18 Additional Comments Follow for diet advancement/ intakes
[2018-11-01] MEDS: VANCOMYCIN PO PO SCH (18:26)
[2018-11-01 19:11] LABS: Hematocrit 31.6 % (35.5-45.6); Hemoglobin 11.2 gm/dl (11.8-15.2)
--- NOTE | 2018-11-01 21:53 | XRay Report ---
PROCEDURE: XR ABDOMEN 1V AP TECHNIQUE: Abdominal radiograph, single view. HISTORY: Coffee ground Emesis COMPARISONS: CT abdomen and pelvis dated October 27, 2018 and x-ray abdomen dated October 28, 2018 . FINDINGS: There has been interval development of moderate to marked distention of segments of small bowel and c olon which are largely air filled. The appearance is most suggestive of an ileus. The tip of the esophagogastric tube is projected in the region of the stomach. There is no definite evidence of pneumoperitoneum. IMPRESSION: 1. Distended air-filled loops of small bowel and colon most suggestive of an ileus. If further imaging is required, CT abdomen and pelvis may be helpful. This document is electronically signed by Hansa Staples MD., November 01 2018 09:51:20 PM ET
[2018-11-01] MEDS ORDERED: FLAGYL 500 MG/100 ML 500 MG/100 ML BAG IV SCH (22:00)
[2018-11-01] MEDS: LOVENOX SUB-Q SCH (22:53)
[2018-11-01] MEDS: ATIVAN IV PRN (23:21)
[2018-11-02] MEDS: VANCOMYCIN PO PO SCH ×2 (00:53→06:09)
[2018-11-02] MEDS: D5NS 1,000 ML IV SCH (02:45)
[2018-11-02 06:19] VITALS: BP 116/56
[2018-11-02] MEDS ORDERED: NACL 0.9% 500 ML 500 ML IV ONE (06:31)
[2018-11-02] MEDS: TYLENOL PO PRN (06:34)
[2018-11-02] MEDS: ATIVAN IV PRN (06:35)
--- NOTE | 2018-11-02 06:35 | Event Note ---
Date: 11/02/18 Received call from Damian LASSITER regarding pt HR being in 150's for the past hour. Stat CBC, BMP, Mg and Phos labs were ordered. Pt has low grade temp of 100.4, advised RN to give Tylenol. 500cc NS bolus ordered. Pt is on CIWA protocol for Alcohol withdrawal syndrome with DT.m Advised RN to do CIWA screening and given Ativan based on CIWA score.
[2018-11-02] MEDS ORDERED: VITAMIN B-1 100 MG, FOLVITE 1 MG, INFUVITE 10 ML in NACL 0.9% 1000 ML 1,000 ML IV ONE (06:50)
[2018-11-02] MEDS ORDERED: ATROPINE 0.1% (CARDIAC) ONE (07:00)
[2018-11-02] MEDS ORDERED: ADRENALIN ONE (07:00)
[2018-11-02] MEDS ORDERED: ADRENALIN IV ONE (07:00)
--- NOTE | 2018-11-02 07:41 | Event Note ---
Date: 11/02/18 siria chong was called at 7:00 Am and patient was in asystole, patient has NG tube in place despite that the patient has dark gastric secretion. patient was coded according to ACLS protocol for 35 minutes. He was intubated successfully by Dr Bradford. Despite that patient at 7:30 AM.
--- NOTE | 2018-11-02 07:42 | Discharge Summary ---
Providers - Providers Date of Admission: 10/27/18 16:05 Date of discharge: 11/02/18 Attending physician: KANDI GOOD MD 10/28/18 15:33 Consult to Physician [CONS] Routine Comment: Consulting Provider: NAVYA GILBERT Physician Instructions: Reason For Exam: sereve alcohol withdrawal 11/01/18 09:42 Occupational Therapy Evaluate and Treat [CONS] Routine Comment: Reason For Exam: weakness Physical Therapy Evaluation and Treat [CONS] Routine Comment: Reason For Exam: weakness [facility] Reason for admission: Acohol withdrawal DT, C.diff, pancreatitis, GI bleed, severe malnutrition Condition: Serious Hospital course: 53 YO Male with ETOH Dependence last drink of ETOH was 5 days ago presents to ED for increased confusion, tremors, and unsteady gait resulting in multiple falls without injury over the past 2 days with worsening symptoms over the past 1 day. EMS was notified, and upon arrival to ER the patient was found to have ETOH Withdrawl complicated by Delirium, and Encephalopathy, Acidosis, and ETOH pancreatitis. Pt admitted to Medical Floor, and initiated on CIWA protocol, as well as IVF resuscitation therapy. Patient was on appropriate treatment for alcohol withdrawal, and alcoholic pancreatitis and patient showed some improvement and transferred to the floor in the floor patient developed diarrhea and was put empirically on flagyl and when confirmed, patient had fever and qualified for PO vancomycin and later in the afternoon patient has some abdominal distension and I put the patient NPO and switched back to IV flagyl. KUB showed ileus. Patient was hypokalemic and repleted his potassium. Patient was still confused. Earlier this morning around 6:30 and was tachycardic and EKG was done shows sinus tachycardia, patient's blood pressure is marginally low. Patient immediately started to have dropping of his prostrate and went into asystole. Patient was coded according to ACLS protocol for 30 minutes despite that patient 7:30. patient was intubated by Dr. Hall. I have called and discussed with his mother, sister and daughter was a power of bank teller. Disposition: DC-30 STILL A PATIENT Time spent for discharge: 45 minutes - Discharge Diagnoses (1) Hypokalemia Status: Acute (2) Ileus Status: Acute (3) Severe malnutrition Status: Acute (4) Acute pancreatitis Status: Acute Qualifiers: Pancreatitis type: alcohol induced Acute pancreatitis complication: unspecified Qualified Code(s): K85.20 - Alcohol induced acute pancreatitis without necrosis or infection (5) Alcohol withdrawal syndrome Status: Acute Qualifiers: Complication of substance-induced condition: with unspecified complication Qualified Code(s): F10.239 - Alcohol dependence with withdrawal, unspecified (6) Encephalopathy Status: Acute (7) Hypomagnesemia Status: Acute (8) Asystole Status: Acute Core Measure Documentation - Palliative Care Palliative Care/ Comfort Measures: Not Applicable - Core Measures Any of the following diagnoses?: none Exam - Physical Exam Narrative exam: NO pulse No respiration. Pupils are fixed and dilated - Constitutional Vitals: Temp Pulse Resp BP Pulse Ox 100.4 F H 153 H 24 116/56 82 L 11/02/18 06:15 11/02/18 06:15 11/02/18 06:15 11/02/18 06:15 11/02/18 06:15 Plan Follow up with: PRIMARY CAREMD [Referring] - 3-5 Days
--- NOTE | 2018-11-02 10:38 | Event Note ---
Date: 11/02/18 Cardiac arrest note I responded to a cardiac arrest on the fourth floor of this hospital. When I arrived, the patient was found in asystole. Staff was doing CPR. I was somewhat unclear as to whether the code was initiated by telemetry or to the floor staff. In any case, I assume the head of the bed to prepare for airway management. Shortly thereafter the patient's physician Dr. Ramirez arrived. Procedure note The patient was found to have copious fluid in his airway that looked likely to be consistent with hematemesis. This was suctioned. Using a Mac 4 blade A 7.5 Czech endotracheal tube was passed on a single attempt. There was end- tidal CO2 color change. There were no breath sounds found above the gastric fundus. Breath sounds were heard in both lungs. However they were somewhat distant and emesis was found in the endotracheal tube. The patient was given epinephrine. My presence was required in the emergency department. Further code management per . The prognosis looks rather poor. Assessment Cardiac arrest Pulmonary aspiration GI bleeding
[2018-11-02] MEDS ORDERED: LIDOCAINE VISCOUS 2% ONE (14:28)
[2018-11-02] MEDS ORDERED: NACL 0.9% 1000 ML ONE (14:28)
== END 2018-11-02 16:54 | DRG 438 ==
LOC: ED 09:32 → 3A 16:05 → CC1 10-28 16:12 → 4A 10-31 17:44
PROVIDERS: ADMIT Internal Medicine; ATTEND Internal Medicine
PROC: 5A09357 Assistance with Respiratory Ventilation, Less than 24 Consecutive Hours, Continuous Positive Airway Pressure (ICD-10-PCS; 2018-10-28)
PROC: 4A033R1 Measurement of Arterial Saturation, Peripheral, Percutaneous Approach (ICD-10-PCS; 2018-10-28)
PROC: 5A09357 Assistance with Respiratory Ventilation, Less than 24 Consecutive Hours, Continuous Positive Airway Pressure (ICD-10-PCS; 2018-10-29)
PROC: 5A09357 Assistance with Respiratory Ventilation, Less than 24 Consecutive Hours, Continuous Positive Airway Pressure (ICD-10-PCS; 2018-10-30)
PROC: 5A09357 Assistance with Respiratory Ventilation, Less than 24 Consecutive Hours, Continuous Positive Airway Pressure (ICD-10-PCS; 2018-10-31)
PROC: 5A09357 Assistance with Respiratory Ventilation, Less than 24 Consecutive Hours, Continuous Positive Airway Pressure (ICD-10-PCS; 2018-11-01)
PROC: 0D9670Z Drainage of Stomach with Drainage Device, Via Natural or Artificial Opening (ICD-10-PCS; principal; 2018-11-02)
PROC: 5A12012 Performance of Cardiac Output, Single, Manual (ICD-10-PCS; 2018-11-02)
PROC: 0BH17EZ Insertion of Endotracheal Airway into Trachea, Via Natural or Artificial Opening (ICD-10-PCS; 2018-11-02)
PROC: 5A09357 Assistance with Respiratory Ventilation, Less than 24 Consecutive Hours, Continuous Positive Airway Pressure (ICD-10-PCS; 2018-11-02)
DX: K85.20 Alcohol induced acute pancreatitis without necrosis or infection (principal); G92 Toxic encephalopathy; E43 Unspecified severe protein-calorie malnutrition; F10.231 Alcohol dependence with withdrawal delirium; A04.72 Enterocolitis due to Clostridium difficile, not specified as recurrent; K56.7 Ileus, unspecified; K92.0 Hematemesis; Y90.9 Presence of alcohol in blood, level not specified; E83.42 Hypomagnesemia; E87.6 Hypokalemia; I46.9 Cardiac arrest, cause unspecified; Z82.49 Family history of ischemic heart disease and other diseases of the circulatory system
CPT/HCPCS: 36415; 36600; 70450; 71045; 71046; 74018; 74177; 80053; 80307; 80320; 81001; 82140; 82803; 82962; 83690; 83735; 84100; 85007; 85014; 85018; 85025; 87040; 87493; 93005; 93010; 94660; 94760; 96374; 96375; G0378; G0480; J0171; J0461; J1650; J2060; J2543; J3370; J3411; J3475; J3480; J7030; J7040; J7042; Q9967